=== PATIENT | male | born 1950 | race Caucasian/White ===

== ENCOUNTER 2019-07-03 11:36 | Inpatient (IN) ==
[2019-07-03] MEDS ORDERED: HEPARIN (PORCINE) 1000 UNIT/ML 10 ML (CATH LAB USE ONLY) ONE (11:44)
[2019-07-03] MEDS ORDERED: fentaNYL citrate 100 MCG/2 ML VIAL ONE (11:44)
[2019-07-03] MEDS ORDERED: NiCARDipine HCL INJ 2.5 MG/ML 10 ML AMP ONE (11:44)
[2019-07-03] MEDS ORDERED: NITROGLYCERIN/D5W 100MCG/ML 20ML SYR ONE (11:45)
[2019-07-03] MEDS ORDERED: MIDAZOLAM HCL 1 MG/ML 2ML VIAL ONE (11:45)
--- NOTE | 2019-07-03 11:53 | XRay Report ---
XR chest 1V portable CLINICAL HISTORY: 68 years-old Male presenting with Chest Pain. TECHNIQUE: Portable upright AP view of the chest was obtained. COMPARISON: None. FINDINGS: Atherosclerosis and mild tortuosity of the thoracic aorta. Cardiac silhouette borderline enlarged. Mi ld pulmonary vascular prominence. No focal opacity. No large effusion or pneumothorax. Degenerative c hanges of the thoracic spine. Upper abdomen normal. IMPRESSION: 1. Borderline cardiomegaly and mild volume overload. No aaron pulmonary edema. ACT 112: Negative or not required by law. Electronically signed by: Stu Ornelas M.D. 07/03/2019 11:52 AM
--- NOTE | 2019-07-03 12:01 | Emergency Department Note ---
History of Present Illness General Chief Complaint: Heart Alert Source: patient and EMS Mode of arrival: other ([employer] helicopter) Limitations: no limitations History of Present Illness Provider Complaint: chest pain This is a 68-year-old male who presents to the ED with a chief complaint of chest pain. The patient states that his symptoms started at 10 AM this morning. The pain radiated down both of his arms. He has history of AK in the past and has 2 stents. This was performed in [place]. The patient has some associated shortness of breath. No fevers or recent illness. His symptoms came on at rest. His vital signs here are stable. He was transported by [employer] helicopter to [facility]. The patient took 3 sublingual nitroglycerin himself. He was given a sublingual nitro by EMS. [facility] provided the patient with 50 mcg of IV fentanyl, 4 mg of IV morphine, 4 mg of IV Zofran as w ell as 4000 units of IV heparin and 180 units of Brilinta. The patient was a code heart alert prior to his arrival. Dr. Soto was present upon the patient's presentation in the ED. Home Medications Home Medications Medication Instructions Recorded Confirmed Type aspirin 81 mg PO DAILY 07/03/19 07/03/19 History calcium carbonate-vitamin D3 1 tab PO DAILY 07/03/19 07/03/19 History [Calcium 500 + D] cholecalciferol (vitamin D3) 0 unit PO DAILY 07/03/19 07/03/19 History [Vitamin D3] famotidine 20 mg PO DAILY PRN 07/03/19 07/03/19 History gabapentin 300 mg PO DAILY 07/03/19 07/03/19 History qdefhxldhqi-B1-Ganaqonfs serr 1 tab PO DAILY 07/03/19 07/03/19 History [Osteo Bi-Flex (5-Loxin)] isosorbide mononitrate 60 mg PO QAM 07/03/19 07/03/19 History ketoconazole 1 applic TOPICAL DAILY PRN 07/03/19 07/03/19 History levofloxacin 750 mg PO DAILY 07/03/19 07/03/19 History levothyroxine 50 mcg PO DAILY 07/03/19 07/03/19 History multivitamin 1 cap PO DAILY 07/03/19 07/03/19 History nebivolol [Bystolic] 5 mg PO DAILY 07/03/19 07/03/19 History nitroglycerin [Nitrostat] 0.4 mg SUBLINGUAL UD 07/03/19 07/03/19 History prednisone 7.5 mg PO QDB 07/03/19 07/03/19 History ranitidine HCl 150 mg PO DAILY 07/03/19 07/03/19 History rivaroxaban [Xarelto] 20 mg PO DAILY 07/03/19 07/03/19 History rosuvastatin 20 mg PO HS 07/03/19 07/03/19 History salsalate 500 mg PO BID 07/03/19 07/03/19 History Past Med/Surg History Social History Feels Safe at Home: Yes Smoking Status: Never smoker Review of Systems As above otherwise negative for 10 systems Physical Exam Vital Signs Vital Signs - 24 hr 07/03/19 11:42 07/03/19 11:50 Temperature 36.5 C Temperature Source Oral Pulse Rate 65 Respiratory Rate 22 Blood Pressure 163/92 H Blood Pressure Mean 115 Pulse Oximetry 93 Oxygen Delivery Method Room Air Room Air Sepsis Recent Fever Within 48 Hours No Sepsis Action Taken by Nursing No Action Required CONSTITUTIONAL/VITAL SIGNS: Reviewed / noted above. GENERAL: Non-toxic in appearance. INTEGUMENTARY: Warm, dry, and [place]. HEAD: Normocephalic. EYES: without scleral icterus or trauma. ENT/OROPHARYNX: clear and moist. LYMPHADENOPATHY/NECK: Is supple without lymphadenopathy or meningismus. RESPIRATORY: Lungs clear and equal. CARDIOVASCULAR: Regular rate and rhythm. GI/ABDOMEN: Soft and nontender. No organomegaly or pulsatile mass. No rebound or guarding. Normal bowel sounds. EXTREMITIES: Warm and well perfused. BACK: No CVA tenderness. NEUROLOGICAL: Intact without focal deficits. PSYCHIATRIC: normal affect. MUSCULOSKELETAL: Normally developed with good muscle tone. TRIAGE NURSING DOCUMENTATION REVIEWED. Course Administered Medications Discontinued Medications Dopamine HCl/Dextrose (Dopamine / D5w ([employer] Use Only)) Confirm Administered Dose 400 mg .ROUTE .[facility] ONE Stop: 07/03/19 12:15 Last Admin: 07/03/19 13:38 Dose: Not Given Documented by: [id number] Fentanyl Citrate (Fentanyl Citrate) Confirm Administered Dose 100 mcg .ROUTE .Yorxs ONE Stop: 07/03/19 11:45 Last Admin: 07/03/19 13:37 Dose: 50 mcg Documented by: [id number] Heparin Sodium (Porcine) (Heparin Iv Bolus ([employer] Use Only)) Confirm Administered Dose 10,000 units .ROUTE .STK-MED ONE Stop: 07/03/19 11:45 Last Admin: 07/03/19 13:37 Dose: 5,500 units Documented by: [id number] Heparin Sodium/Sodium Chloride (Heparin/Nss 1000 Unit/500ml Flush Bag) Confirm Administered Dose 3,000 units IV .STK-MED ONE Stop: 07/03/19 11:46 Last Admin: 07/03/19 12:26 Dose: 3,000 units Documented by: [id number] Midazolam HCl (Versed) Confirm Administered Dose 2 mg .ROUTE .STK-MED ONE Stop: 07/03/19 11:46 Last Admin: 07/03/19 13:31 Dose: 2 mg Documented by: [id number] Nicardipine HCl (Cardene) Confirm Administered Dose 25 mg .ROUTE .STK-MED ONE Stop: 07/03/19 11:45 Last Admin: 07/03/19 12:26 Dose: 25 mg Documented by: [id number] Nitroglycerin/Dextrose (Nitroglycerin/D5w 100 Mcg/Ml 20ml Syringe) Confirm Administered Dose 2,000 mcg .ROUTE .STK-MED ONE Stop: 07/03/19 11:46 Last Admin: 07/03/19 12:26 Dose: 2,000 mcg Documented by: [id number] Medical Decision Making Differential Diagnosis The differential that was considered includes acute myocardial infarction, acute coronary syndrome, myocarditis, pericarditis, pericardial effusions /tamponade, esophageal perforation, thoracic aortic dissection, pulmonary embolism, pneumonia, pneumothorax, pancreatitis, shingles, acute cholecystitis, perforated abdominal viscus. Laboratory Data Result diagrams: 07/03/19 11:45 07/03/19 11:45 Labs: Lab Results 07/03/19 07/03/19 07/03/19 Range/Units 11:45 11:45 11:45 WBC 10.69 (4.8-10.8) K/uL RBC 4.76 (4.7-6.1) M/uL Hgb 14.6 (14.0-18.0) g/dL Hct 41.8 L (42-52) % MCV 87.8 (80-100) fL MCH 30.7 (25-34) pg MCHC 34.9 (32-36) g/dL RDW Std Deviation 40.5 (36.4-46.3) fL RDW Coeff of Jimmy 12.6 (11.5-14.5) % Plt Count 590 H (130-400) K/uL MPV 10.0 (7.4-10.4) fL Immature Gran % (Auto) 0.7 % Neut % (Auto) 77.7 % Lymph % (Auto) 10.8 % [place] % (Auto) 9.6 % Eos % (Auto) 0.9 % Baso % (Auto) 0.3 % Immature Gran # (Auto) 0.08 H (0.00-0.02) K/uL Neut # (Auto) 8.30 H (1.4-6.5) K/uL Lymph # (Auto) 1.15 L (1.2-3.4) K/uL [place] # (Auto) 1.03 H (0.11-0.59) K/uL Eos # (Auto) 0.10 (0-0.5) K/uL Baso # (Auto) 0.03 (0-0.2) K/uL PT 14.1 H (9.0-12.0) Seconds INR 1.4 H (0.9-1.1) APTT 105.2 H* (21.0-31.0) Seconds PTT Ratio 3.8 Activ Coag Time Kaolin (94-140) SECONDS Sodium 135 L (136-145) mmol/L Potassium 3.8 (3.5-5.1) mmol/L Chloride 103 (98-107) mmol/L Carbon Dioxide 22 (21-32) mmol/L Anion Gap 10.0 (3-11) BUN 14 (7-18) mg/dl Creatinine 0.99 (0.6-1.4) mg/dl Est Cr Clr Drug Dosing 74.8 ml/min Est GFR ( Amer) 91.0 Est GFR (Non-Af Amer) 78.5 BUN/Creatinine Ratio 14.6 (10-20) Glucose 135 H (70-99) mg/dl Calcium 9.6 (8.5-10.1) mg/dl Total Bilirubin 0.9 (0.2-1) mg/dl AST 47 H (15-37) U/L ALT 95 H (12-78) U/L Alkaline Phosphatase 57 (45-117) U/L Total Creatine Kinase 25 L (39-308) U/L Troponin I 0.063 H* (0-0.045) ng/ml Total Protein 6.8 (6.4-8.2) gm/dl Albumin 3.2 L (3.4-5.0) gm/dl Globulin 3.6 (2.5-4.0) gm/dl Albumin/Globulin Ratio 0.9 (0.9-2) 07/03/19 Range/Units 12:04 WBC (4.8-10.8) K/uL RBC (4.7-6.1) M/uL Hgb (14.0-18.0) g/dL Hct (42-52) % MCV (80-100) fL MCH (25-34) pg MCHC (32-36) g/dL RDW Std Deviation (36.4-46.3) fL RDW Coeff of Jimmy (11.5-14.5) % Plt Count (130-400) K/uL MPV (7.4-10.4) fL Immature Gran % (Auto) % Neut % (Auto) % Lymph % (Auto) % [place] % (Auto) % Eos % (Auto) % Baso % (Auto) % Immature Gran # (Auto) (0.00-0.02) K/uL Neut # (Auto) (1.4-6.5) K/uL Lymph # (Auto) (1.2-3.4) K/uL [place] # (Auto) (0.11-0.59) K/uL Eos # (Auto) (0-0.5) K/uL Baso # (Auto) (0-0.2) K/uL PT (9.0-12.0) Seconds INR (0.9-1.1) APTT (21.0-31.0) Seconds PTT Ratio Activ Coag Time Kaolin 175 H (94-140) SECONDS Sodium (136-145) mmol/L Potassium (3.5-5.1) mmol/L Chloride (98-107) mmol/L Carbon Dioxide (21-32) mmol/L Anion Gap (3-11) BUN (7-18) mg/dl Creatinine (0.6-1.4) mg/dl Est Cr Clr Drug Dosing ml/min Est GFR ( Amer) Est GFR (Non-Af Amer) BUN/Creatinine Ratio (10-20) Glucose (70-99) mg/dl Calcium (8.5-10.1) mg/dl Total Bilirubin (0.2-1) mg/dl AST (15-37) U/L ALT (12-78) U/L Alkaline Phosphatase (45-117) U/L Total Creatine Kinase (39-308) U/L Troponin I (0-0.045) ng/ml Total Protein (6.4-8.2) gm/dl Albumin (3.4-5.0) gm/dl Globulin (2.5-4.0) gm/dl Albumin/Globulin Ratio (0.9-2) Imaging Data Chest x-ray: Attestation: I personally reviewed and interpreted this imaging study as follows: (No acute disease. No pneumothorax. No pneumonia.) My impression: No acute disease. No pneumonia or pneumothorax. Radiologist's impression: XR chest 1V portable CLINICAL HISTORY: 68 years-old Male presenting with Chest Pain. TECHNIQUE: Portable upright AP view of the chest was obtained. COMPARISON: None. FINDINGS: Atherosclerosis and mild tortuosity of the thoracic aorta. Cardiac silhouette borderline enlarged. Mild pulmonary vascular prominence. No focal opacity. No large effusion or pneumothorax. Degenerative changes of the thoracic spine. Upper abdomen normal. IMPRESSION: 1. Borderline cardiomegaly and mild volume overload. No aaron pulmonary edema. ECG Data Attestation: I personally reviewed and interpreted this ECG as follows: Indication: chest pain Rate (beats per minute): 63 Rhythm: normal sinus Findings: + Q waves (Inferior) and + ST elevation (Inferior and posterior); no PVC Comparison ECG Date: no prior available Blood Pressure Blood Pressure Findings: Elevated blood pressure Blood Pressure Disposition: further management by hospitalist SUKHI Gonzales This is a 68-year-old male who presents to the ED with a chief complaint of chest pain. The patient states that his symptoms started at 10 AM this morning. The pain radiated down both of his arms. He has history of AK in the past and has 2 stents. This was performed in [place]. The patient has some associated s hortness of breath. No fevers or recent illness. His symptoms came on at rest. His vital signs here are stable. He was transported by [employer] helicopter to [facility]. The patient took 3 sublingual nitroglycerin himself. He was given a sublingual nitro by EMS. [facility] provided the patient with 50 mcg of IV fentanyl, 4 mg of IV morphine, 4 mg of IV Zofran as well as 4000 units of IV heparin and 180 units of Brilinta. The patient was a code heart alert prior to his arrival. Dr. Soto was present upon the patient's presentation in the ED. the patient's twelve-lead here shows an acute inferior posterior wall AK. The patient received the medication. Chest x-ray was negative for acute disease. The patient was taken to the [facility] for further intervention. The patient CBC and chemistry panel was unremarkable. Troponin was elevated. Chest x-ray was negative for acute disease. Impression & Plan ST elevation (STEMI) myocardial infarction Critical Care Time Critical Care Time: Yes Total Critical Care Time: 30 I have personally spent 30 minutes of critical care time in the direct management of this patient. This includes bedside care, interpretation of diagnostic studies, and testing, discussion with consultants, patient, and family members, and other required patient management activities. This 30 minutes is in excess of all separately billable procedures. Discharge Plan Visit Data *Final* Discharge Date/Time: 07/03/19 12:06 Chief Complaint: Heart Alert ED Provider: Tristian Rosenberg Discharge Problem: ST elevation (STEMI) myocardial infarction Patient Disposition: Still a Patient Discharge Instructions Interventions: ED Discharge Assessment Last Done: 07/03/19 11:59 Discharge Problem: ST elevation (STEMI) myocardial infarction Qualifiers: Involved coronary artery: right coronary artery Qualified Code(s): I21.11 - ST elevation (STEMI) myocardial infarction involving right coronary artery
[2019-07-03 12:02] LABS: Basophils # (auto) 0.03 K/uL (0-0.2); Basophils % (auto) 0.3 %; Eosinophils % (auto) 0.9 %; Hematocrit (blood only) 41.8 % (42-52); Hemoglobin 14.6 g/dL (14.0-18.0); Immature Granulocytes # (auto) 0.08 K/uL (0.00-0.02); Immature Granulocytes % (auto) 0.7 %; Lymphocytes # (auto) 1.15 K/uL (1.2-3.4); Lymphocytes % (auto) 10.8 %; Mean Corpuscular Hemoglobin 30.7 pg (25-34); Mean Corpuscular Hgb Conc 34.9 g/dL (32-36); Mean Corpuscular Volume 87.8 fL (80-100); Monocytes # (auto) 1.03 K/uL (0.11-0.59); Monocytes % (auto) 9.6 %; Neutrophils % (auto) 77.7 %; Platelet Count 590 K/uL (130-400); RDW Coefficient of Variation 12.6 % (11.5-14.5); RDW Standard Deviation 40.5 fL (36.4-46.3); Red Blood Count 4.76 M/uL (4.7-6.1); White Blood Count 10.69 K/uL (4.8-10.8)
[2019-07-03] MEDS ORDERED: DOPamine 400MG / 250ML D5W (CATH LAB USE ONLY) ONE (12:14)
[2019-07-03 12:27] LABS: Albumin Globulin Ratio 0.9 (0.9-2); Albumin Level 3.2 gm/dl (3.4-5.0); BUN Creatinine Ratio 14.6 (10-20); Bilirubin,Total 0.9 mg/dl (0.2-1); Calcium 9.6 mg/dl (8.5-10.1); Creatinine Clr Calc Pharmacy 74.8 ml/min; Est GFR (Non-African American) 78.5; Globulin 3.6 gm/dl (2.5-4.0); Potassium 3.8 mmol/L (3.5-5.1); Total Protein 6.8 gm/dl (6.4-8.2)
[2019-07-03 12:32] LABS: INR 1.4 (0.9-1.1); Partial Thromboplastin Ratio 3.8; Prothrombin Time 14.1 Seconds (9.0-12.0)
[2019-07-03 12:35] LABS: Troponin I 0.063 ng/ml (0-0.045)
[2019-07-03 12:46] LABS: Partial Thromboplastin Time 105.2 Seconds (21.0-31.0)
--- NOTE | 2019-07-03 14:42 | Post Anesthesia Assessment ---
Date of Service July 03, 2019 Post Sedation Assessment Vital Signs Temp Pulse Resp BP Pulse Ox 07/03/19 11:50 36.5 C 65 22 163/92 H 93 Recovery Score Activity: Moves 4 extremities Respiration: Deep Breath/Cough Circulation: +/-20% PreAnes Value Consciousness: Fully Awake Oxygen Saturation: > 92% On Room Air Discharge Sedation Level of Care: Phase I Post Sedation Plan On clinical assessment, the patient appears to have tolerated the sedation without complications. Patient is recovering as anticipated. Patient will continue to be monitored by nursing and may be discharged when sedation discharge criteria are met per below protocol. Upon Completions of procedure up to 15 minutes continue every 5 minute vital signs and the P.A.R. score; then discharge to a Phase I or Fast Track to Phase II per the following guidelines: * Discharge Patient to appropriate Phase II area if PAR is 8 or greater or return to pre- procedure baseline. The post - procedure orders will be as directed. * If PAR score is less than 8 or not return to pre-procedure baseline then patient will follow Phase I monitoring till PAR is reached for Phase II. The Phase I may be done in procedure room or may call to secure a Phase I area. * If naloxone or flumazenil are used for reversal, hold in Phase I for continued monitoring from when last reversal dose was given for a minimum of 60 minutes or longer pending the nurse and/or physician discretion of patient condition before discharge to Phase II. Please call the Sedation Physician to re-evaluate and complete post-note for discharge to Phase II area. Do NOT discharge from procedure sedation or Phase 1 until post- sedation evaluation note is complete by procedure /sedation MD Sedation Discharge Instructions to be given to the patient at discharge to home.
--- NOTE | 2019-07-03 14:42 | Pre Anesthesia Assessment ---
Date of Service July 03, 2019 Pre Sedation Assessment Vital Signs Temp Pulse Resp BP Pulse Ox 07/03/19 11:50 36.5 C 65 22 163/92 H 93 Cardiovascular RRR, no murmur, no edema Respiratory normal respiratory effort, lungs clear to auscultation Pre-Sedation Airway Assessment Smoking Status: Never smoker Hx Sleep Apnea: No Hx Difficult Intubation: No Short, Thick Neck: No Mallampati Class: II ASA: ASA3 Procedure Planning Contraindications for Sedation: none Current Medications Reviewed: No Notes The planned sedation has been discussed with the patient. Informed Consent was obtained. I have identified the patient, determined the appropriateness of sedation and have assessed the patient immediately prior to the procedure. All medicine(s) and interventions are by my order.
--- NOTE | 2019-07-03 15:06 | Cardiac Catheterization ---
Cardiac Cath Procedure Full Procedure Date July 03, 2019 Pre-Procedure Diagnosis Pre-Procedure Diagnosis: STEMI AUC Score AUC Score: 09 Post-Procedure Diagnosis Post-Procedure Diagnosis: Severe CAD Procedure(s) Performed Procedure(s) Performed: Coronary Angiography and PTCA Dive Supervisor Jm Soto MD Estimated Blood Loss Estimated Blood Loss: <20 ml Medication(s) Medication(s): Aspirin, Fentanyl, Heparin, Lidocaine 1%, Nicardipine, Nitroglycerin and Versed Medication(s): Brilinta Summary of Findings LMT: large. Mild <30% LAD: large, transapical. Prox-mild, mid up to 40%, early distal before stent 40%, late after D3 70% D1 small, D2 medium with ostial 70%, D3 small LCx: large, nondominant Prox and mid mild disease. Distal medium tapers to termination. Mild disease OM1+2 small with mild diseaseOM3 large and branching without disease. RCA: large caliber and dominant. Diffuse disease and ectasia. Proximal 20-30%. At RVM long eccentric calcified 30-40%. RVM prox 99%. Then ectasia/aneurysm before mid stent. Early distal stent with diffuse mild ISRS. Late distal stent 100% with thrombus and ISRS. PDA and PLB are large and fill late with DOMENICA 0.5-1 flow. PTCA of distal stent: reduced thrombus, improved flow (DOMENICA II-2.5), Residual stenosis of 20%. * unable to deliver stents distally. No dissection/perforation. Hemodynamics Rest Ao:: 134/69 mm Hg, mean 97 mm Hg Final Ao: 144/72 mm Hg, mean 101 mm Hg LV: N/A Recommendations Recommendations: Medical Therapy and/or Counseling, PCI without planned CABG and Management Recommendatons (heparin gtt for 48 hrs. If recurrence then Repeat cath from GROIN.) Radiation Exposure (mGy) 3861 Contrast (mls) 200 ml Procedural Complication(s) None Disposition ICU I attest to the content of the Intraoperative Record and any orders documented therein. Any exceptions are noted below. 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 Cardiac Status Clinical evaluation leading to the procedure CAD Presenation: STEMI Anginal Classification: CCS IV Heart Failure: No Cardiogenic Shock within 24 Hours: No Cardiac Arrest within 24 Hours: No Imaging Studies Past 6 Months: No Stress Studies Past 6 Months: No STEMI OR Non-STEMI Symptom Onset Date: 07/03/19 Symptom Onset Time: 10:01 Thrombolytics: No Coronary Anatomy Dominant: Right Left Main (% Stenosis): Normal LAD (% Stenosis): Distal (40%, mild ISRS, focal 70%) OM1 (% Stenosis): Normal (scattered mild plaques) L PDA (% Stenosis): Proximal (mild), Mid (30-40%, ectasia) and Distal (early stent ok, distal stent 100% with thrombus and ISRS. TIMI1) R PDA (% Stenosis): Ostial (thrombus 99%) Diagnostic Physicians Name: Jm Soto MD Status: Emergency Closure Device Percutaneous Entry Location: Radial Closure Device: Radial Band Recommendations: Medical Therapy and/or Counseling, PCI without planned CABG and Management Recommendatons (heparin gtt for 48 hrs. If recurrence then Repeat cath from GROIN.) PCI Indication: PCI for STEMI - Stable First Noted: First EKG Reason For Delay in PCI:: Difficulty crossing culprit lesion Lesion Segment Name: distal RCA Culprit Artery: Yes Stenosis Prior to Rx (%): 100% Chronic Total Occlusion: No Pre-Procedure DOMENICA Flow: 1 Previously Treated Lesion: Yes Lesion Complexity: High/C Lesion Length (mm): 23 mm Thrombus Present: Yes Bifurcation Lesion: Yes Guidewire Across Lesion: Yes Intraprocedure Events Significant Disection: No Perforation: No
[2019-07-03] MEDS ORDERED: Heparin IV Standard *NO* Bolus IV SCH (15:15)
--- NOTE | 2019-07-03 15:23 | Critical Care Consultation ---
Date of Consultation July 03, 2019 Assessment & Plan (1) ST elevation (STEMI) myocardial infarction: Reason Critically Ill: 68 year old male presenting with an acute inferior posterior wall OR that underwent cardiac catheterization with ballooning of the stenosis but inability to stent. NEURO: CAM ICU: Negative CARDIAC: STEMI of Inferior Posterior Wall 2/2 stenosis of distal RCA -ST elevations noted on 12 lead EKG in ED -Patient received nitro and ASA prior to life flight. -Was given 50mg fentanyl, 4mg morphine, 4mg zofran, 4000 units heparin, and 180 units Brilinta on life flight -Was taken to the dental laboratory technician apprentice where he had a noted 100% stenosis of his distal RCA Stent -Patient was ballooned and remaining stenosis was 20%, but stent was unable to be placed. -Plan to start heparin drip x48 hours after TR band is removed -Continue ASA, Plavix, Imdur, Rosuvastatin -Continue Bystolic, hold for HR <60 -If patient should start having symptoms again, would recommend consulting Dr. Tse as he will be covering for a femoral approach at the lesions vs transfer for surgery. Hx Paroxysmal Afib -Holding home xarelto at this time. RESPIRATORY: -No concerns at the time, continue to monitor GI: Continue Pepcid for prophylaxis RENAL/LYTES: No concerns at this, time will continue to monitor lytes : No concerns ENDO: Hypothyroidism -Continue home synthroid 50mcg HEME: Rheumatoid Arthritis -Continue home gabapentin, prednisone -Holding home Salsalate ID: No concerns at this time LINES/IV ACCESS: R antecubital peripheral CODE STATUS: Full DVT PROPHYLAXIS: Heparin Drip Thank you for allowing us to participate in the care of this patient. Please refer to my attending physician's documentation for any further recommendations. Supervising Physician Co-Signing Physician Notes Dr. Cam was the resident-physician during care of patient. I separately evaluated patient for hussein portions of the history and the exam. I was present during the critical portion of medical decision making, and I discussed the case with the resident. I generally agree with the findings and plan except for any additions/exceptions noted. Patient with a history of coronary artery disease. He had chest pain this morning around 10 AM that woke him up from sleep. Underwent a heart cath today by Dr. Soto. There was ectasia in the RCA and latex spooler was able to balloon open the vessel but unable to place a stent. Further discussion with the latex spooler who recommends 48 hours of heparin drip. If any recurrent symptoms, will discuss with interventional cardiology again about possible re- intervention versus transfer to a tertiary facility. History of Present Illness Reason for Consultation: STEMI S/P Heart Cath Attending Physician: Jm Soto MD History of Present Illness Patient is a 68 year old male that was transferred to the ICU for observation after undergoing hearth cath with balloon of the stenotic lesion. Patient notes that his symptoms started this morning around 10AM and described it as a "chest congestion" and led to pain which radiated down both of his arms. He notes that he had a history of an OR 10 years ago which required 2 stents in [place], and that he had another heart cath 2-3 years ago that was "about the same" as after the stent placement. He was transported via [employer] to [facility] as a heart alert. Prior to that he had taken 3 nitroglycerin and ASA at home. Upon arrival, his 12 lead EKG showed an acute inferior posterior wall OR and he was rushed to the chemical laboratory scientist for further intervention. It was noted at the late distal stent of his RCA there was a 100% stenosis with thrombus. The thrombus was reduced and the residual stenosis was 20%, however, a stent was unable to be delivered distally. Patient had notable relief of chest pain and was transferred to ICU for monitoring. Of note, patient states that he was recently hospitalized and treated for the Flu and pneumonia 1 week ago. He states that he has since improved from that and has completed his course of levaquin. He denies any fever or chills, cough since. Allergies Allergy/AdvReac Type Severity Reaction Status Date / Time Penicillins Allergy Rash Verified 07/03/19 15:36 Sulfa (Sulfonamide Allergy Chest Pain Verified 07/03/19 15:36 Antibiotics) Home Medications Home Medications Medication Instructions Recorded Confirmed Type aspirin 81 mg PO DAILY 07/03/19 07/03/19 History calcium carbonate-vitamin D3 1 tab PO DAILY 07/03/19 07/03/19 History [Calcium 500 + D] cholecalciferol (vitamin D3) 0 unit PO DAILY 07/03/19 07/03/19 History [Vitamin D3] famotidine 20 mg PO DAILY PRN 07/03/19 07/03/19 History gabapentin 300 mg PO DAILY 07/03/19 07/03/19 History gvagzdzgfrh-W0-Inmyihrmt serr 1 tab PO DAILY 07/03/19 07/03/19 History [Osteo Bi-Flex (5-Loxin)] isosorbide mononitrate 60 mg PO QAM 07/03/19 07/03/19 History ketoconazole 1 applic TOPICAL DAILY PRN 07/03/19 07/03/19 History levofloxacin 750 mg PO DAILY 07/03/19 07/03/19 History levothyroxine 50 mcg PO DAILY 07/03/19 07/03/19 History multivitamin 1 cap PO DAILY 07/03/19 07/03/19 History nebivolol [Bystolic] 5 mg PO DAILY 07/03/19 07/03/19 History nitroglycerin [Nitrostat] 0.4 mg SUBLINGUAL UD 07/03/19 07/03/19 History prednisone 7.5 mg PO QDB 07/03/19 07/03/19 History ranitidine HCl 150 mg PO DAILY 07/03/19 07/03/19 History rivaroxaban [Xarelto] 20 mg PO DAILY 07/03/19 07/03/19 History rosuvastatin 20 mg PO HS 07/03/19 07/03/19 History salsalate 500 mg PO BID 07/03/19 07/03/19 History Patient History Medical History (Updated 07/03/19 @ 15:45 by Germán Cam DO) Myocardial infarct Social History Preferred Language: Citizen Of [place] Communication Ability: 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 Beliefs That Will Affect Care: None Current Living Situation: Spouse Other Information That Helps Us Care for You: No Feels Safe at Home: Yes Safety Concerns: Feels Safe At This Time Smoking Status: Never smoker Do You Dip or Chew Tobacco: No ; Second Hand Exposure: No ; Tobacco Cessation Education Requested by Patient: No Hx Alcohol Use: No Hx Substance Use: No Review of Systems Constitutional: no fever and no chills Eyes: no blind spots and no worsening vision Ear, Nose, Mouth, Throat: no dizziness Respiratory: no cough, no dyspnea and no pain on inspiration Cardiovascular: + chest pain (notes slight chest discomfort ); no radiating jaw, neck or arm pain, no dyspnea, no dyspnea on exertion and no palpitations Gastrointestinal: no abdominal pain, no nausea, no vomiting, no constipation and no diarrhea/loose stools Genitourinary: no dysuria Physical Exam Constitutional: WD/WN, vitals as above Respiratory: normal respiratory effort, lungs clear to auscultation Cardiovascular: RRR, no murmur, no edema Gastrointestinal (Abdomen): normal bowel sounds, soft, nontender, no hepatosplenomegaly Skin: R wrist with TR band in place, CDI. Results & Data Vital Signs (Past 12 Hours) Vital Signs Temp Pulse Resp BP Pulse Ox 07/03/19 11:50 36.5 C 65 22 163/92 H 93 Resident Activity Tracking Resident Involvement: Resident Care Provided Care Provided: Adult Hospital Medicine (1) ST elevation (STEMI) myocardial infarction Involved coronary artery: right coronary artery Qualified Code(s): I21.11 - ST elevation (STEMI) myocardial infarction involving right coronary artery
[2019-07-03] MEDS ORDERED: LEVOTHYROXINE SODIUM 50 MCG TABLET PO SCH (16:30)
--- NOTE | 2019-07-03 16:47 | Electrocardiogram Report ---
Test Reason : Blood Pressure : / mmHG Vent. Rate : 063 BPM Atrial Rate : 063 BPM P-R Int : 166 ms QRS Dur : 108 ms QT Int : 416 ms P-R-T Axes : 037 051 087 degrees QTc Int : 425 ms Normal sinus rhythm Minimal voltage criteria for LVH, may be normal variant Inferior-posterior infarct , possibly acute Lateral injury pattern ACUTE [place] / STEMI Abnormal ECG No previous ECGs available Confirmed by Saturnino Bond ([id number]) on 07/03/2019 4:47:15 PM Referred By: REFERRED SELF Confirmed By:Saturnino Bond
--- NOTE | 2019-07-03 16:52 | Billing Data ---
Date of Service July 03, 2019 Coding Level of Care Code 67348 Initial Inpt Care Lvl 3
--- NOTE | 2019-07-03 17:30 | XCELERA ---
[id number] \\[email or web address]\[email or web address]\[id number]
[2019-07-03] MEDS: HEPARIN SODIUM/DEXTROSE 25,000 UNITS/500 ML BAG IV SCH (17:33)
[2019-07-03] MEDS: FAMOTIDINE 20 MG TAB PO SCH (17:34)
[2019-07-03] MEDS: GABAPENTIN 300 MG CAP PO SCH (17:35)
[2019-07-03] MEDS ORDERED: CLOPIDOGREL BISULFATE 300 MG TAB PO ONE (18:00)
[2019-07-03] MEDS: ROSUVASTATIN CALCIUM 20 MG TAB PO SCH (21:07)
[2019-07-03] MEDS ORDERED: ICU PROTOCOL FOR HYPERGLYCEMIA PRN (21:25)
[2019-07-04 00:07] LABS: Partial Thromboplastin Ratio 2.5
[2019-07-04 00:08] LABS: Partial Thromboplastin Time 70.7 Seconds (21.0-31.0)
[2019-07-04 01:55] LABS: Basophils # (auto) 0.03 K/uL (0-0.2); Basophils % (auto) 0.4 %; Hematocrit (blood only) 40.4 % (42-52); Hemoglobin 14.1 g/dL (14.0-18.0); Immature Granulocytes # (auto) 0.05 K/uL (0.00-0.02); Immature Granulocytes % (auto) 0.7 %; Lymphocytes # (auto) 1.03 K/uL (1.2-3.4); Lymphocytes % (auto) 15.4 %; Mean Corpuscular Hemoglobin 30.9 pg (25-34); Mean Corpuscular Hgb Conc 34.9 g/dL (32-36); Mean Corpuscular Volume 88.4 fL (80-100); Mean Platelet Volume 9.3 fL (7.4-10.4); Monocytes # (auto) 0.93 K/uL (0.11-0.59); Monocytes % (auto) 13.9 %; Neutrophils # (auto) 4.47 K/uL (1.4-6.5); Neutrophils % (auto) 66.6 %; Platelet Count 414 K/uL (130-400); RDW Coefficient of Variation 12.7 % (11.5-14.5); RDW Standard Deviation 40.6 fL (36.4-46.3); Red Blood Count 4.57 M/uL (4.7-6.1); White Blood Count 6.71 K/uL (4.8-10.8)
[2019-07-04 02:18] LABS: BUN Creatinine Ratio 11.6 (10-20); Calcium 8.6 mg/dl (8.5-10.1); Creatinine Clr Calc Pharmacy 87.1 ml/min; Est GFR (African American) 104.5; Est GFR (Non-African American) 90.2; Magnesium 1.9 mg/dl (1.8-2.4); Potassium 3.7 mmol/L (3.5-5.1)
[2019-07-04] MEDS ORDERED: MAGNESIUM SULFATE / D5W 1 GM/100 ML BAG IV ONE (02:29)
[2019-07-04 02:44] LABS: Phosphorus 3.7 mg/dl (2.5-4.9); Troponin I 69.6 ng/ml (0-0.045)
[2019-07-04] MEDS: POTASSIUM CHLORIDE / WTR 10 MEQ/100 ML PLCT IV SCH ×2 (03:26→04:23)
[2019-07-04 07:20] LABS: Partial Thromboplastin Ratio 2.6
[2019-07-04 07:35] LABS: Partial Thromboplastin Time 72.6 Seconds (21.0-31.0)
[2019-07-04] MEDS ORDERED: NEBIVOLOL HCL 5 MG TAB PO SCH (09:00)
[2019-07-04] MEDS ORDERED: ISOSORBIDE MONO EXTENDED REL 60 MG TABCR PO SCH (09:00)
[2019-07-04] MEDS: predniSONE 2.5 MG TAB PO SCH (09:28)
[2019-07-04] MEDS: CLOPIDOGREL BISULFATE 75 MG TAB PO SCH (09:29)
[2019-07-04] MEDS: ASPIRIN 81 MG ECTAB PO SCH (09:29)
[2019-07-04] MEDS: FAMOTIDINE 20 MG TAB PO SCH (09:29)
[2019-07-04] MEDS: GABAPENTIN 300 MG CAP PO SCH (09:29)
--- NOTE | 2019-07-04 09:42 | Critical Care Progress Note ---
Date of Service July 04, 2019 Assessment & Plan (1) ST elevation (STEMI) myocardial infarction: Continue post STEMI care. High-grade lesion and unable to place stent per cardiology. Heparin drip x48 hours. Continue beta-mitchell. He is on nebivolol. Ideally he should be on a cardioselective beta-mitchell. Will defer to cardiology. EF is 40 to 45%. Base and mid inferior wall are akinetic in the mid section of the posterior wall is akinetic. I have added lisinopril 2.5 mg as well. Continue isosorbide mononitrate. Continue statin. Continue aspirin and Plavix. Continue prednisone for his history of rheumatoid arthritis. Monitor for any further signs of ventricular tachycardia. Stable transfer to floor with telemetry. (2) CAD (coronary artery disease): (3) Hypertension: (4) Ventricular tachycardia: Subjective Patient is lying in bed today watching TV. He denies any complaint. No chest pain or fevers. No nausea. Heparin drip is running. He had some short runs of ventricular tachycardia overnight. He is receiving potassium and magnesium this morning. Review of Systems Review of Systems: All systems reviewed & are unremarkable except as noted in HPI & below Physical Exam Constitutional: WD/WN, vitals as above Eyes: PERRL, conjunctivae normal, anicteric sclerae ENMT: external ear and nose normal, oropharynx normal Neck: trachea midline, no thyromegaly Respiratory: normal respiratory effort, lungs clear to auscultation Cardiovascular: RRR, no murmur, no edema Gastrointestinal (Abdomen): normal bowel sounds, soft, nontender, no hepatosplenomegaly Musculoskeletal: no cyanosis or clubbing, extremities motor strength 5/5 Skin: no rashes, warm and dry Neurologic: PERRL, EOMI, accommodation nl, no face palsy, no dysarthria Psychiatric: A+Ox3, euthymic affect Results & Data ([facility]) Vital Signs (Past 12 Hours) Vital Signs Temp Pulse Resp BP Pulse Ox 07/04/19 06:30 60 18 95 07/04/19 06:20 60 14 96 07/04/19 06:10 60 19 96 07/04/19 06:09 61 18 117/67 96 07/04/19 06:00 69 19 77 L 07/04/19 05:50 60 15 95 07/04/19 05:40 62 17 96 07/04/19 05:30 61 15 96 07/04/19 05:27 62 11 L 123/72 97 07/04/19 05:20 62 14 97 07/04/19 05:12 63 18 127/70 97 07/04/19 05:10 63 13 97 07/04/19 05:00 63 16 96 07/04/19 04:57 64 18 114/70 96 07/04/19 04:50 62 26 H 96 07/04/19 04:42 63 19 130/75 97 07/04/19 04:40 61 18 97 07/04/19 04:30 60 17 96 07/04/19 04:27 60 16 116/70 96 07/04/19 04:20 61 18 96 07/04/19 04:12 60 18 109/67 96 07/04/19 04:10 60 18 95 07/04/19 04:00 97.3 F L 59 L 11 L 96 07/04/19 03:57 59 L 19 112/68 96 07/04/19 03:50 59 L 18 95 07/04/19 03:43 62 19 96 07/04/19 03:42 62 17 119/69 96 07/04/19 03:30 62 21 96 07/04/19 03:27 61 17 127/80 96 07/04/19 03:12 59 L 17 126/72 98 07/04/19 03:00 58 L 17 95 07/04/19 02:57 57 L 19 134/74 96 07/04/19 02:42 62 16 105/65 96 07/04/19 02:30 62 18 96 07/04/19 02:27 66 18 120/60 97 07/04/19 02:12 58 L 19 112/68 96 07/04/19 02:00 61 19 97 07/04/19 01:57 65 16 118/72 97 07/04/19 01:42 59 L 17 107/68 96 07/04/19 01:30 59 L 18 96 07/04/19 01:27 60 18 129/75 97 07/04/19 01:12 60 19 116/71 96 07/04/19 01:00 61 17 96 07/04/19 00:57 61 17 109/67 95 07/04/19 00:42 58 L 16 109/69 96 07/04/19 00:30 57 L 17 97 07/04/19 00:27 57 L 14 142/81 H 98 07/04/19 00:12 57 L 18 122/72 97 07/04/19 00:00 97.9 F 56 L 18 98 07/03/19 23:57 57 L 17 120/70 97 07/03/19 23:42 57 L 19 118/72 98 07/03/19 23:30 56 L 17 97 07/03/19 23:27 55 L 17 117/73 97 07/03/19 23:12 56 L 18 122/73 97 07/03/19 23:00 58 L 18 96 07/03/19 22:57 57 L 17 107/65 96 07/03/19 22:42 57 L 18 107/69 96 07/03/19 22:30 55 L 20 99 07/03/19 22:27 55 L 13 139/84 99 07/03/19 22:11 58 L 16 110/72 97 07/03/19 22:00 59 L 17 97 07/03/19 21:56 58 L 19 118/68 97 07/03/19 21:41 58 L 17 113/71 97 I personally reviewed his labs, chest imaging and notes. I also reviewed his echo Coding Level of Care Code 09104 Subseq Hosp Care Lvl [address] elevation (STEMI) myocardial infarction I21.11 Involved coronary artery: right coronary artery CAD (coronary artery disease) I25.10 Hypertension I10 Ventricular tachycardia I47.2 (1) ST elevation (STEMI) myocardial infarction Involved coronary artery: right coronary artery Qualified Code(s): I21.11 - ST elevation (STEMI) myocardial infarction involving right coronary artery
[2019-07-04] MEDS: HEPARIN SODIUM/DEXTROSE 25,000 UNITS/500 ML BAG IV SCH (11:27)
--- NOTE | 2019-07-04 11:44 | Electrocardiogram Report ---
Test Reason : Blood Pressure : / mmHG Vent. Rate : 064 BPM Atrial Rate : 064 BPM P-R Int : 166 ms QRS Dur : 098 ms QT Int : 414 ms P-R-T Axes : 040 -33 046 degrees QTc Int : 427 ms Normal sinus rhythm Left axis deviation Acute Inferior infarct (cited on or before 03-JUL-2019) ACUTE [place] / STEMI Consider right ventricular involvement in acute inferior infarct Abnormal ECG When compared with ECG of 03-JUL-2019 11:40, Serial changes of evolving Inferior infarct Present Confirmed by Gordo Thompson ([id number]) on 07/04/2019 11:43:55 AM Referred By: REFERRED SELF Confirmed By:Gordo Thompson
--- NOTE | 2019-07-04 13:33 | Cardiology Progress Note ---
Date of Service July 04, 2019 Assessment & Plan (1) ST elevation (STEMI) myocardial infarction: -- Post angioplasty to mid RCA, distal RCA very-late stent thrombosis. -- Residual distal LAD disease 2. Ischemic cardiomyopathy -- EF 40-45%, inferior akinesis. 3. Paroxysmal atrial fibrillation, post prior AF ablation 4. Recent ICU stay in setting of flu/PNA 5. Rheumatoid arthritis. 6. NSVT -- Patient chest pain free and troponin peaked. -- Hemodynamically and electrically stable -- Mild pulmonary congestion on exam. -- Post procedure labs stable -- No access site complications. - Reviewed patient's angiography and discussed options for management of his RCA disease long-term. Significant residual disease in RCA and feel reasonable to attempt re-intervention from femoral artery approach. Tentatively plan on procedure saturday morning. - Continue heparin infusion in interim. - fpc plan on triple therapy with clopidogrel, xarelto and aspirin for 1 week then drop aspirin - transition nebivolol to metoprolol 12.5 mg BID and titrate up as able - continue to titrate up lisinopril. - can discontinue imdur - continue high-intensity statin - start PPI while on triple therapy Up in chair today, can transition to telemetry later today if remains stable. Admission and Anticipated Discharge Date Admission Date: July 03, 2019 Subjective Patient has been chest pain free since angioplasty yesterday. Minimal NSVT on telemetry. Troponin has peaked. Review of Systems Review of Systems: All systems reviewed & are unremarkable except as noted in HPI & below Physical Exam Physical Exam: General: Comfortable, no acute distress Eyes: Sclerae anicteric, extraocular movements intact HENT: Oropharynx clear mucous membranes moist Neck: No JVD. Lungs: Few crackles at bases bilaterally Cardiac: Regular rate and rhythm, no murmurs Abdomen: Soft, nontender Neuro: Nonfocal Psych: Alert orient x3, normal affect and mood Extremities/Vascular: -- 2+ radial bilaterally -- RT radial pulse intact, no hematoma. intact distal sensation. -- No edema Results & Data ([facility]) Vital Signs (Past 12 Hours) Vital Signs Temp Pulse Resp BP Pulse Ox 07/04/19 08:00 60 07/04/19 06:30 60 18 95 07/04/19 06:20 60 14 96 07/04/19 06:10 60 19 96 03/14/20 06:09 61 18 117/67 96 07/04/19 06:00 69 19 77 L 07/04/19 05:50 60 15 95 07/04/19 05:40 62 17 96 07/04/19 05:30 61 15 96 07/04/19 05:27 62 11 L 123/72 97 07/04/19 05:20 62 14 97 07/04/19 05:12 63 18 127/70 97 07/04/19 05:10 63 13 97 07/04/19 05:00 63 16 96 07/04/19 04:57 64 18 114/70 96 07/04/19 04:50 62 26 H 96 07/04/19 04:42 63 19 130/75 97 07/04/19 04:40 61 18 97 07/04/19 04:30 60 17 96 07/04/19 04:27 60 16 116/70 96 07/04/19 04:20 61 18 96 07/04/19 04:12 60 18 109/67 96 07/04/19 04:10 60 18 95 07/04/19 04:00 97.3 F L 59 L 11 L 96 07/04/19 03:57 59 L 19 112/68 96 07/04/19 03:50 59 L 18 95 07/04/19 03:43 62 19 96 07/04/19 03:42 62 17 119/69 96 07/04/19 03:30 62 21 96 07/04/19 03:27 61 17 127/80 96 07/04/19 03:12 59 L 17 126/72 98 07/04/19 03:00 58 L 17 95 07/04/19 02:57 57 L 19 134/74 96 07/04/19 02:42 62 16 105/65 96 07/04/19 02:30 62 18 96 07/04/19 02:27 66 18 120/60 97 07/04/19 02:12 58 L 19 112/68 96 07/04/19 02:00 61 19 97 07/04/19 01:57 65 16 118/72 97 07/04/19 01:42 59 L 17 107/68 96 07/04/19 01:30 59 L 18 96 07/04/19 01:27 60 18 129/75 97 PG Care Time/CCT Total # of Minutes Spent Total Time Spent with Patient: Total time spent is greater than 50% in coordination of care (as documented) at patient's floor/unit and/or counseling patient: Coding Level of Care Code 29121 Subseq Hosp Care Lvl [address] elevation (STEMI) myocardial infarction I21.11 Involved coronary artery: right coronary artery (1) ST elevation (STEMI) myocardial infarction Involved coronary artery: right coronary artery Qualified Code(s): I21.11 - ST elevation (STEMI) myocardial infarction involving right coronary artery
[2019-07-04 14:02] LABS: Partial Thromboplastin Ratio 2.6
[2019-07-04 14:18] LABS: Partial Thromboplastin Time 72.5 Seconds (21.0-31.0)
--- NOTE | 2019-07-04 16:27 | History & Physical Report ---
Date of Service July 04, 2019 Assessment & Plan (1) ST elevation (STEMI) myocardial infarction: -- Post angioplasty to mid RCA, distal RCA very-late stent thrombosis. -- Residual distal LAD disease 2. Ischemic cardiomyopathy -- EF 40-45%, inferior akinesis. 3. Paroxysmal atrial fibrillation, post prior AF ablation 4. Recent ICU stay in setting of flu/PNA 5. Rheumatoid arthritis. 6. NSVT -- Patient chest pain free and troponin peaked. -- Hemodynamically and electrically stable -- Mild pulmonary congestion on exam. -- Post procedure labs stable -- No access site complications. - Reviewed patient's angiography and discussed options for management of his RCA disease long-term. Significant residual disease in RCA and feel reasonable to attempt re-intervention from femoral artery approach. Tentatively plan on procedure saturday. - Continue heparin infusion in interim. - termite control representative plan on triple therapy with clopidogrel, xarelto and aspirin for 1 week then drop aspirin - transition nebivolol to metoprolol 12.5 mg BID and titrate up as able - continue to titrate up lisinopril. - can discontinue imdur - continue high-intensity statin - start PPI while on triple therapy Up in chair today, can transition to telemetry later today if remains stable. History of Present Illness Primary Care Provider: NO PCP Mr. Dao is a pleasant 68 year old man with a history of CAD post acute CO and RCA stenting ~10 yrs ago who was readmitted yesterday with after inferior CO treated with primary PCI. Other medical issues include rheumatoid arthritis on chronic steroids, hypertension, GERD, neuropathy. Prior history of PAF and post AF ablation. Has been on long-term xarelto. Clopidogrel stopped yrs ago. Does not follow with a peer health promoter currently. Was admitted to [facility] ICU last week in the setting of influenza A and PNA. Discharged on levofloxacin. Per patient report course complicated by recurrent AF. Chest pain began at rest ~10 AM, radiating down bilateral arms and reminiscent of prior CO. Initially presented to [facility] before life-flighted to [facility]. ECG with 4+ inferior ST elevations. Underwent emergent catheterization which showed distal RCA 100% very late stent thrombosis. Flow re-established with angioplasty but stent could not be delivered to distal vessel in the setting of diffuse upstream ectatic disease. Also had 70% distal LAD disease. Patient kept on heparin overnight. Troponin peaked at 78. No further chest pain. Rare ventricular ectopy on telemetry. Echo showed mild LV dysfunction with inferior akinesis. Allergies Allergy/AdvReac Type Severity Reaction Status Date / Time Penicillins Allergy Rash Verified 07/03/19 15:36 Sulfa (Sulfonamide Allergy Chest Pain Verified 07/03/19 15:36 Antibiotics) Home Medications Home Medications Medication Instructions Recorded Confirmed Type aspirin 81 mg PO DAILY 07/03/19 07/03/19 History calcium carbonate-vitamin D3 1 tab PO DAILY 07/03/19 07/03/19 History [Calcium 500 + D] cholecalciferol (vitamin D3) 0 unit PO DAILY 07/03/19 07/03/19 History [Vitamin D3] famotidine 20 mg PO DAILY PRN 07/03/19 07/03/19 History gabapentin 300 mg PO DAILY 07/03/19 07/03/19 History [id number]-[id number]-Bmdsdsado serr 1 tab PO DAILY 07/03/19 07/03/19 History [Osteo Bi-Flex (5-Loxin)] isosorbide mononitrate 60 mg PO QAM 07/03/19 07/03/19 History ketoconazole 1 applic TOPICAL DAILY PRN 07/03/19 07/03/19 History levofloxacin 750 mg PO DAILY 07/03/19 07/03/19 History levothyroxine 50 mcg PO DAILY 07/03/19 07/03/19 History multivitamin 1 cap PO DAILY 07/03/19 07/03/19 History nebivolol [Bystolic] 5 mg PO DAILY 07/03/19 07/03/19 History nitroglycerin [Nitrostat] 0.4 mg SUBLINGUAL UD 07/03/19 07/03/19 History prednisone 7.5 mg PO QDB 07/03/19 07/03/19 History ranitidine HCl 150 mg PO DAILY 07/03/19 07/03/19 History rivaroxaban [Xarelto] 20 mg PO DAILY 07/03/19 07/03/19 History rosuvastatin 20 mg PO HS 07/03/19 07/03/19 History salsalate 500 mg PO BID 07/03/19 07/03/19 History Past Med/Surg History Medical History (Updated 07/04/19 @ 09:38 by Ruddy Carter MD) Hypertension Myocardial infarct Ventricular tachycardia Social History Preferred Language: [place] Communication Ability: Effective Licensed Insurance Agent Required: No Beliefs That Will Affect Care: None Current Living Situation: Spouse Other Information That Helps Us Care for You: No Feels Safe at Home: Yes Safety Concerns: Feels Safe At This Time Smoking Status: Never smoker Do You Dip or Chew Tobacco: No ; Second Hand Exposure: No ; Tobacco Cessation Education Requested by Patient: No Hx Alcohol Use: No Hx Substance Use: No Review of Systems Review of Systems: All systems reviewed & are unremarkable except as noted in HPI & below Physical Exam Physical Exam: General: Comfortable, no acute distress Eyes: Sclerae anicteric, extraocular movements intact HENT: Oropharynx clear mucous membranes moist Neck: No JVD. Lungs: Few crackles at bases bilaterally Cardiac: Regular rate and rhythm, no murmurs Abdomen: Soft, nontender Neuro: Nonfocal Psych: Alert orient x3, normal affect and mood Extremities/Vascular: -- 2+ radial bilaterally -- RT radial pulse intact, no hematoma. intact distal sensation. -- No edema Results & Data Vital Signs (Past 12 Hours) Vital Signs Pulse Resp BP Pulse Ox 07/04/19 08:00 60 07/04/19 06:30 60 18 95 07/04/19 06:20 60 14 96 07/04/19 06:10 60 19 96 07/04/19 06:09 61 18 117/67 96 07/04/19 06:00 69 19 77 L 07/04/19 05:50 60 15 95 07/04/19 05:40 62 17 96 07/04/19 05:30 61 15 96 07/04/19 05:27 62 11 L 123/72 97 07/04/19 05:20 62 14 97 07/04/19 05:12 63 18 127/70 97 07/04/19 05:10 63 13 97 07/04/19 05:00 63 16 96 07/04/19 04:57 64 18 114/70 96 07/04/19 04:50 62 26 H 96 07/04/19 04:42 63 19 130/75 97 07/04/19 04:40 61 18 97 07/04/19 04:30 60 17 96 07/04/19 04:27 60 16 116/70 96 07/04/19 04:20 61 18 96 Code Status & VTE Plan VTE Prophylaxis Plan VTE Prophylaxis will be ordered: Yes PG Care Time/CCT Total # of Minutes Spent Total Time Spent with Patient: Total time spent is greater than 50% in coordination of care (as documented) at patient's floor/unit and/or counseling patient: Coding Level of Care Code 80621 Initial Inpt Care Lvl [address] elevation (STEMI) myocardial infarction I21.11 Involved coronary artery: right coronary artery (1) ST elevation (STEMI) myocardial infarction Involved coronary artery: right coronary artery Qualified Code(s): I21.11 - ST elevation (STEMI) myocardial infarction involving right coronary artery
--- NOTE | 2019-07-04 17:51 | Electrocardiogram Report ---
Test Reason : Blood Pressure : / mmHG Vent. Rate : 070 BPM Atrial Rate : 070 BPM P-R Int : 168 ms QRS Dur : 094 ms QT Int : 422 ms P-R-T Axes : 036 -45 -44 degrees QTc Int : 455 ms Normal sinus rhythm Left axis deviation Serial changes of evolving Inferior infarct (cited on or before 03-JUL-2019) Abnormal ECG When compared with ECG of 03-JUL-2019 14:00, Confirmed by Gordo Thompson ([id number]) on 07/04/2019 5:51:07 PM Referred By: REFERRED SELF Confirmed By:Gordo Thompson
[2019-07-04] MEDS: METOPROLOL TARTRATE 25 MG TAB PO SCH (20:43)
[2019-07-04] MEDS: LEVOTHYROXINE SODIUM 50 MCG TABLET PO SCH (20:43)
[2019-07-04] MEDS: ROSUVASTATIN CALCIUM 20 MG TAB PO SCH (20:43)
[2019-07-04 21:15] LABS: Partial Thromboplastin Ratio 2.3
[2019-07-04 21:38] LABS: Partial Thromboplastin Time 65.2 Seconds (21.0-31.0)
[2019-07-05 04:25] LABS: BUN Creatinine Ratio 13.7 (10-20); Calcium 8.5 mg/dl (8.5-10.1); Creatinine Clr Calc Pharmacy 93.4 ml/min; Est GFR (African American) 109.4; Est GFR (Non-African American) 94.4; Magnesium 2.1 mg/dl (1.8-2.4); Potassium 3.5 mmol/L (3.5-5.1)
[2019-07-05 04:28] LABS: Partial Thromboplastin Ratio 2.6
[2019-07-05 04:31] LABS: Partial Thromboplastin Time 72.9 Seconds (21.0-31.0)
[2019-07-05] MEDS ORDERED: POTASSIUM CHLORIDE 20 MEQ TABCR PO STA (04:39)
[2019-07-05] MEDS: HEPARIN SODIUM/DEXTROSE 25,000 UNITS/500 ML BAG IV SCH (07:57)
[2019-07-05] MEDS: ASPIRIN 81 MG ECTAB PO SCH (08:00)
[2019-07-05] MEDS: CLOPIDOGREL BISULFATE 75 MG TAB PO SCH (08:00)
[2019-07-05] MEDS: predniSONE 2.5 MG TAB PO SCH (08:00)
[2019-07-05] MEDS: GABAPENTIN 300 MG CAP PO SCH ×2 (08:00→21:28)
[2019-07-05] MEDS: FAMOTIDINE 20 MG TAB PO SCH (08:00)
[2019-07-05] MEDS: PANTOprazole 40 MG TAB PO SCH (08:00)
[2019-07-05] MEDS: lisinopriL 5 MG TAB PO SCH (08:03)
[2019-07-05] MEDS: METOPROLOL TARTRATE 25 MG TAB PO SCH ×2 (08:03→21:29)
--- NOTE | 2019-07-05 10:21 | Cardiology Progress Note ---
Date of Service July 05, 2019 Assessment & Plan (1) ST elevation (STEMI) myocardial infarction: -- Post angioplasty to mid RCA, distal RCA very-late stent thrombosis. -- Residual distal LAD disease 2. Ischemic cardiomyopathy -- EF 40-45%, inferior akinesis. 3. Paroxysmal atrial fibrillation, post prior AF ablation 4. Recent ICU stay in setting of flu/PNA 5. Rheumatoid arthritis. 6. NSVT Patient remains chest pain free. Hemodynamically and electrically stable. No signs of heart failure. 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 -- continue aspirin/clopidogrel -- increase metoprolol to 25mg BID -- continue lisinopril -- can transition to telemetry later today if remains stable. Admission and Anticipated Discharge Date Admission Date: July 03, 2019 Subjective Patient remains chest pain free. Has been up to chair. No other new concerns. Telemetry unremarkable. Review of Systems Review of Systems: All systems reviewed & are unremarkable except as noted in HPI & below Physical Exam Physical Exam: General: Comfortable, no acute distress Eyes: Sclerae anicteric, extraocular movements intact HENT: Oropharynx clear mucous membranes moist Neck: No JVD. Lungs: Few crackles at base on left Cardiac: Regular rate and rhythm, no murmurs Abdomen: Soft, nontender Neuro: Nonfocal Psych: Alert orient x3, normal affect and mood Extremities/Vascular: -- 2+ radial bilaterally -- RT radial pulse intact, no hematoma. intact distal sensation. -- No edema Results & Data ([facility]) Vital Signs (Past 12 Hours) Vital Signs Pulse 07/05/19 07:13 59 L PG Care Time/CCT Total # of Minutes Spent Total Time Spent with Patient: Total time spent is greater than 50% in coordination of care (as documented) at patient's floor/unit and/or counseling patient: Coding Level of Care Code 84082 Subseq Hosp Care Lvl [address] elevation (STEMI) myocardial infarction I21.11 Involved coronary artery: right coronary artery (1) ST elevation (STEMI) myocardial infarction Involved coronary artery: right coronary artery Qualified Code(s): I21.11 - ST elevation (STEMI) myocardial infarction involving right coronary artery
[2019-07-05] MEDS ORDERED: NITROGLYCERIN SL 0.4 MG/TAB TAB SL PRN (11:11)
[2019-07-05 11:28] LABS: Partial Thromboplastin Ratio 2.3
[2019-07-05 11:35] LABS: Partial Thromboplastin Time 63.7 Seconds (21.0-31.0)
--- NOTE | 2019-07-05 18:34 | Hospitalist Consultation ---
Date of Consultation July 05, 2019 Assessment & Plan (1) ST elevation (STEMI) myocardial infarction: Presented as a [facility] heart alert on 07/02 with Chest pain and inferior ST elevations. Underwent emergent catheterization which showed distal RCA 100% very late stent thrombosis. Flow re-established with angioplasty but stent could not be delivered to distal vessel in the setting of diffuse upstream ectatic disease. Also had 70% distal LAD disease. Troponin peaked at 78. No further chest pain. Rare ventricular ectopy on telemetry. Echo showed mild LV dysfunction with inferior akinesis but he has no clinical signs of acute CHF -Continue heparin drip and will be on hold for repeat cardiac catheterization on Saturday to attempt placement of stent in the distal RCA -Continue aspirin, clopidogrel, and will restart Xarelto after cardiac catheterization-triple therapy planned x1 week followed by discontinuation of aspirin as per cardiology consultation -Continue Crestor 20 mg p.o. at bedtime-check lipid panel in the morning and consideration to be made for an increase in dose to 40 mg -Continue Protonix while on triple therapy -Started on lisinopril 5 mg daily and his Bystolic was changed to metoprolol tartrate 25 mg p.o. twice daily -Continue telemetry monitoring -Cardiology is managing (2) CAD (coronary artery disease): As above With a history of MT and stent placement in 2009. Had repeat cardiac catheterization approximately 2 to 3 years ago that he reports was stable from previous He follows with a Dr. Johnson at [facility] -Continue medications as noted above -He is currently not on his isosorbide from home as per cardiology recommendation (3) Hypertension: Blood pressures well controlled -Continue metoprolol, lisinopril -Home Bystolic has been discontinued -Home isosorbide has been discontinued (4) Ventricular tachycardia: Had some nonsustained V. tach here after his STEMI which is now improved Mildly decreased EF on echocardiogram -Continue metoprolol (5) Ischemic cardiomyopathy: Echo showed mild LV dysfunction with inferior akinesis -Treatment outlined as above No evidence of acute CHF (6) Paroxysmal atrial fibrillation: With a history of such and is status post A. fib ablation in the past -Home Xarelto is on hold -Monitor on telemetry (7) Chronic steroid use: For rheumatoid arthritis -Continue home prednisone 7.5 mg daily -No stress dose steroids needed at this time (8) Rheumatoid arthritis: Follows with public works supervisor Dr. Eve Banuelos in [place] -Continue home prednisone -Holding home salsalate (9) Hypothyroidism: -Continue home levothyroxine -Check TSH in the morning (10) Peripheral neuropathy: Continue gabapentin 3 mg p.o. twice daily Unknown etiology and patient does not know-no history of diabetes (11) Thrombocytosis: Platelets in the 500s on admission and now down in the 400s, likely acute phase reactant Did have recent ICU stay for 1 week for influenza and pneumonia and now here with STEMI -Follow CBC (12) Pneumonia: As above, had a recent one-week hospital stay reportedly in the ICU at [facility] for influenza and pneumonia Completed courses of Tamiflu and levofloxacin after discharge Chest x-ray here without any evidence of pneumonia Lung exam is normal and he has no symptoms, afebrile Resolved (13) GERD (gastroesophageal reflux disease): -Continue home Pepcid -Continues on Protonix while on triple therapy as per cardiology recommendation (14) DVT prophylaxis: Heparin drip Disposition-remain on PCU, for cardiac catheterization on Saturday and hopefully discharged home on Saturday Hospitalist service will follow along History of Present Illness Reason for Consultation: Post-ICU medical management Requesting Physician: Dr. Tse Attending Physician: Jm Soto MD History of Present Illness This patient is a 68-year-old male with history of CAD status post stent placement in 2009, rheumatoid arthritis on chronic prednisone, GERD, hypertension, neuropathy, paroxysmal atrial fibrillation status post ablation, and hypothyroidism, who presents as a [facility] for a heart alert on 07/02. He had a recent hospital stay at [facility] for influenza and pneumonia; he was discharged home the week prior to this admission. He sustained onset of Chest pain began at rest, was radiating down bilateral arms and reminiscent of prior MT. Initially presented to [place] before life- flighted to [facility]. ECG with 4+ inferior ST elevations as per cardiology. He underwent emergent catheterization here which showed distal RCA 100% very late stent thrombosis. Flow re-established with angioplasty but stent could not be delivered to distal vessel in the setting of diffuse upstream ectatic disease. Also had 70% distal LAD disease. Patient kept on heparin drip and has been in the ICU for the last 2 days. His troponin peaked at 78 and he has had no further chest pain. He had some rare ventricular ectopy on telemetry. Echo showed mild LV dysfunction with inferior akinesis. He is now transferred out of the ICU to the PCU, and is awaiting a repeat cardiac catheterization with plans to try to place stent in the distal RCA on Saturday. He is feeling well, denies any cough or shortness of breath, no further chest pain. Denies nausea or vomiting. He is tolerating p.o. He last moved his bowels yesterday. He is making urine and has no complaints. Allergies Allergy/AdvReac Type Severity Reaction Status Date / Time Penicillins Allergy Rash Verified 07/03/19 15:36 Sulfa (Sulfonamide Allergy Chest Pain Verified 07/03/19 15:36 Antibiotics) Home Medications Home Medications Medication Instructions Recorded Confirmed Type aspirin 81 mg PO DAILY 07/03/19 07/03/19 History calcium carbonate-vitamin D3 1 tab PO DAILY 07/03/19 07/03/19 History [Calcium 500 + D] cholecalciferol (vitamin D3) 0 unit PO DAILY 07/03/19 07/03/19 History [Vitamin D3] famotidine 20 mg PO DAILY PRN 07/03/19 07/03/19 History gabapentin 300 mg PO BID 07/03/19 07/05/19 History [id number] serr 1 tab PO DAILY 07/03/19 07/03/19 History [Osteo Bi-Flex (5-Loxin)] isosorbide mononitrate 60 mg PO QAM 07/03/19 07/03/19 History ketoconazole 1 applic TOPICAL DAILY PRN 07/03/19 07/03/19 History levothyroxine 50 mcg PO DAILY 07/03/19 07/03/19 History multivitamin 1 cap PO DAILY 07/03/19 07/03/19 History nebivolol [Bystolic] 5 mg PO DAILY 07/03/19 07/03/19 History nitroglycerin [Nitrostat] 0.4 mg SUBLINGUAL UD 07/03/19 07/03/19 History prednisone 7.5 mg PO QDB 07/03/19 07/03/19 History rivaroxaban [Xarelto] 20 mg PO DAILY 07/03/19 07/03/19 History rosuvastatin 20 mg PO HS 07/03/19 07/03/19 History salsalate 500 mg PO BID 07/03/19 07/03/19 History Patient History Medical History (Updated 07/05/19 @ 19:45 by Eve Davidson MD) Chronic steroid use GERD (gastroesophageal reflux disease) Hypertension Hypothyroidism Ischemic cardiomyopathy Myocardial infarct Paroxysmal atrial fibrillation Peripheral neuropathy Rheumatoid arthritis Ventricular tachycardia Surgical History History of radiofrequency ablation procedure for cardiac arrhythmia Family History Other Family history non-contributory Social History Preferred Language: Uzbek Communication Ability: Effective Clinical Professor Required: No Beliefs That Will Affect Care: None marital status: Current Living Situation: Spouse current occupational status: employed 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 Other Information That Helps Us Care for You: No Feels Safe at Home: Yes Safety Concerns: Feels Safe At This Time Smoking Status: Never smoker Do You Dip or Chew Tobacco: No ; Second Hand Exposure: No ; Tobacco Cessation Education Requested by Patient: No Hx Alcohol Use: No Hx Substance Use: No Review of Systems Review of Systems: All systems reviewed & are unremarkable except as noted in HPI & below Physical Exam Constitutional: WD/WN, vitals as above Eyes: + anicteric sclerae ENMT: external ear and nose normal, oropharynx normal Neck: trachea midline, no thyromegaly Respiratory: normal respiratory effort, lungs clear to auscultation Cardiovascular: RRR, no murmur, no edema Chest (Breasts): Chest: normal inspection of chest Gastrointestinal (Abdomen): normal bowel sounds, soft, nontender, no hepatosplenomegaly Musculoskeletal: Extremities: extremities normal to inspection; no cyanosis and no clubbing Skin: no rashes, warm and dry Neurologic: moves all extremities and awake; no focal motor deficits Psychiatric: A+Ox3, euthymic affect Lymphatic: no lymphedema Results & Data ([facility]) Vital Signs (Past 12 Hours) Vital Signs Temp Pulse Pulse Resp BP BP Pulse Ox 07/05/19 17:27 36.7 C 66 18 111/67 100 07/05/19 16:00 65 07/05/19 15:00 61 20 98 07/05/19 14:40 57 L 20 116/59 L 98 07/05/19 14:33 57 L 18 91/53 L 95 07/05/19 14:30 58 L 18 95 07/05/19 14:10 59 L 19 91/53 L 95 07/05/19 14:00 61 22 96 07/05/19 13:40 65 16 101/60 98 07/05/19 13:30 63 24 97 07/05/19 13:10 65 19 102/57 L 98 07/05/19 13:00 66 20 97 07/05/19 12:40 67 22 101/54 L 97 07/05/19 12:30 67 20 98 07/05/19 12:10 67 19 96/63 L 97 07/05/19 12:00 72 22 97 07/05/19 11:40 65 15 116/68 94 07/05/19 11:30 57 L 17 96 07/05/19 11:10 59 L 16 99/61 L 96 07/05/19 11:00 58 L 15 97 07/05/19 10:40 57 L 8 L 105/64 95 07/05/19 10:30 57 L 14 96 07/05/19 10:10 59 L 18 115/68 98 07/05/19 10:00 59 L 14 97 07/05/19 09:40 59 L 14 103/66 98 07/05/19 09:30 61 21 98 07/05/19 09:09 63 19 112/66 96 07/05/19 09:00 63 14 97 07/05/19 08:40 65 19 103/67 96 07/05/19 08:30 73 27 H 98 07/05/19 08:10 64 18 107/63 97 07/05/19 08:00 37 C 61 17 98 07/05/19 07:52 65 16 103/63 98 07/05/19 07:30 70 27 H 94 07/05/19 07:13 59 L 07/05/19 07:10 60 15 116/67 95 07/05/19 07:00 57 L 22 94 07/05/19 06:40 58 L 18 118/70 95 Laboratory Results 07/05/19 07/05/19 07/05/19 Range/Units 10:47 03:59 03:59 APTT 63.7 H* 72.9 H* (21.0-31.0) Seconds PTT Ratio 2.3 2.6 Sodium 138 (136-145) mmol/L Potassium 3.5 (3.5-5.1) mmol/L Chloride 108 H (98-107) mmol/L Carbon Dioxide 24 (21-32) mmol/L Anion Gap 6.0 (3-11) BUN 10 (7-18) mg/dl Creatinine 0.76 (0.6-1.4) mg/dl Est Cr Clr Drug Dosing 93.4 ml/min Est GFR ( Amer) 109.4 Est GFR (Non-Af Amer) 94.4 BUN/Creatinine Ratio 13.7 (10-20) Glucose 84 (70-99) mg/dl Calcium 8.5 (8.5-10.1) mg/dl Phosphorus 3.0 (2.5-4.9) mg/dl Magnesium 2.1 (1.8-2.4) mg/dl 07/04/19 Range/Units 20:44 APTT 65.2 H* (21.0-31.0) Seconds PTT Ratio 2.3 Sodium (136-145) mmol/L Potassium (3.5-5.1) mmol/L Chloride (98-107) mmol/L Carbon Dioxide (21-32) mmol/L Anion Gap (3-11) BUN (7-18) mg/dl Creatinine (0.6-1.4) mg/dl Est Cr Clr Drug Dosing ml/min Est GFR ( Amer) Est GFR (Non-Af Amer) BUN/Creatinine Ratio (10-20) Glucose (70-99) mg/dl Calcium (8.5-10.1) mg/dl Phosphorus (2.5-4.9) mg/dl Magnesium (1.8-2.4) mg/dl PG Care Time/CCT Total # of Minutes Spent Total Time Spent with Patient: Total time spent is greater than 50% in coordination of care (as documented) at patient's floor/unit and/or counseling patient: Coding Level of Care Code 18598 Inpt Consult Level [address] elevation (STEMI) myocardial infarction I21.11 Involved coronary artery: right coronary artery CAD (coronary artery disease) I25.10 Hypertension I10 Ventricular tachycardia I47.2 Ischemic cardiomyopathy I25.5 Paroxysmal atrial fibrillation I48.0 Chronic steroid use Rheumatoid arthritis M06.9 Hypothyroidism E03.9 Peripheral neuropathy G62.9 Thrombocytosis D47.3 Pneumonia J18.9 GERD (gastroesophageal reflux disease) K21.9 DVT prophylaxis Z29.9 (1) ST elevation (STEMI) myocardial infarction Involved coronary artery: right coronary artery Qualified Code(s): I21.11 - ST elevation (STEMI) myocardial infarction involving right coronary artery
[2019-07-05] MEDS: LEVOTHYROXINE SODIUM 50 MCG TABLET PO SCH (21:29)
[2019-07-05] MEDS: ROSUVASTATIN CALCIUM 20 MG TAB PO SCH (21:29)
[2019-07-06 04:00] LABS: Basophils # (auto) 0.04 K/uL (0-0.2); Basophils % (auto) 0.7 %; Eosinophils # (auto) 0.21 K/uL (0-0.5); Eosinophils % (auto) 3.5 %; Hematocrit (blood only) 40.3 % (42-52); Hemoglobin 13.8 g/dL (14.0-18.0); Immature Granulocytes # (auto) 0.06 K/uL (0.00-0.02); Lymphocytes # (auto) 1.23 K/uL (1.2-3.4); Lymphocytes % (auto) 20.7 %; Mean Corpuscular Hemoglobin 30.8 pg (25-34); Mean Corpuscular Hgb Conc 34.2 g/dL (32-36); Mean Platelet Volume 9.9 fL (7.4-10.4); Monocytes # (auto) 0.69 K/uL (0.11-0.59); Monocytes % (auto) 11.6 %; Neutrophils # (auto) 3.72 K/uL (1.4-6.5); Neutrophils % (auto) 62.5 %; Platelet Count 366 K/uL (130-400); RDW Coefficient of Variation 12.9 % (11.5-14.5); RDW Standard Deviation 41.8 fL (36.4-46.3); Red Blood Count 4.48 M/uL (4.7-6.1); White Blood Count 5.95 K/uL (4.8-10.8)
[2019-07-06 04:16] LABS: BUN Creatinine Ratio 13.5 (10-20); Calcium 8.6 mg/dl (8.5-10.1); Creatinine Clr Calc Pharmacy 95.6 ml/min; Est GFR (African American) 111.2; Potassium 3.7 mmol/L (3.5-5.1)
[2019-07-06 04:22] LABS: Partial Thromboplastin Ratio 2.7
[2019-07-06 04:27] LABS: Thyroid Stimulating Hormone 3.22 uIu/ml (0.300-4.500)
[2019-07-06 04:38] LABS: Partial Thromboplastin Time 75.9 Seconds (21.0-31.0)
[2019-07-06] MEDS: METOPROLOL TARTRATE 25 MG TAB PO SCH ×2 (08:18→20:57)
[2019-07-06] MEDS: GABAPENTIN 300 MG CAP PO SCH ×2 (08:18→20:58)
[2019-07-06] MEDS: HEPARIN SODIUM/DEXTROSE 25,000 UNITS/500 ML BAG IV SCH (08:18)
[2019-07-06] MEDS: PANTOprazole 40 MG TAB PO SCH (08:18)
[2019-07-06] MEDS: FAMOTIDINE 20 MG TAB PO SCH (08:18)
[2019-07-06] MEDS: lisinopriL 5 MG TAB PO SCH (08:18)
[2019-07-06] MEDS: CLOPIDOGREL BISULFATE 75 MG TAB PO SCH (08:19)
[2019-07-06] MEDS: predniSONE 2.5 MG TAB PO SCH (08:19)
[2019-07-06] MEDS: ASPIRIN 81 MG ECTAB PO SCH (08:19)
[2019-07-06] MEDS: CALCIUM 600MG + VIT D 400 IU TAB PO SCH (08:19)
[2019-07-06] MEDS ORDERED: FAMOTIDINE 20 MG TAB PO PRN (09:47)
--- NOTE | 2019-07-06 10:16 | Hospitalist Progress Note ---
Date of Service July 06, 2019 Assessment & Plan (1) ST elevation (STEMI) myocardial infarction: Presented as a [facility] heart alert on 07/02 with Chest pain and inferior ST elevations. Underwent emergent catheterization which showed distal RCA 100% very late stent thrombosis. Flow re-established with angioplasty but stent could not be delivered to distal vessel in the setting of diffuse upstream ectatic disease. Also had 70% distal LAD disease. Troponin peaked at 78. No further chest pain. Rare ventricular ectopy on telemetry. Echo showed mild LV dysfunction with inferior akinesis but he has no clinical signs of acute CHF - Continue heparin drip and will be on hold for repeat cardiac catheterization on Saturday to attempt placement of stent in the distal RCA - Continue aspirin, clopidogrel, and will restart Xarelto after cardiac catheterization-triple therapy planned x1 week followed by discontinuation of aspirin as per cardiology consultation - Continue Crestor 20 mg p.o. at bedtime-check lipid panel in the morning and consideration to be made for an increase in dose to 40 mg - Continue Protonix while on triple therapy - Started on lisinopril 5 mg daily and his Bystolic was changed to metoprolol tartrate 25 mg p.o. twice daily - Continue telemetry monitoring - Cardiology is managing (2) CAD (coronary artery disease): As above With a history of MD and stent placement in 2009. Had repeat cardiac catheterization approximately 2 to 3 years ago that he reports was stable from previous He follows with a Dr. Johnson at [facility] -Continue medications as noted above -He is currently not on his isosorbide from home as per cardiology recommendation (3) Hypertension: Blood pressures well controlled -Continue metoprolol, lisinopril -Home Bystolic has been discontinued -Home isosorbide has been discontinued (4) Ventricular tachycardia: Had some nonsustained V. tach here after his STEMI which is now improved Mildly decreased EF on echocardiogram Telemetry SR 50-60s -Continue metoprolol (5) Ischemic cardiomyopathy: Echo showed mild LV dysfunction with inferior akinesis -Treatment outlined as above No evidence of acute CHF (6) Paroxysmal atrial fibrillation: With a history of such and is status post A. fib ablation in the past. Currently in sinus rhythm. -Home Xarelto is on hold -Monitor on telemetry (7) Chronic steroid use: For rheumatoid arthritis -Continue home prednisone 7.5 mg daily -No stress dose steroids needed at this time (8) Rheumatoid arthritis: Follows with lehr tender Dr. Eve Banuelos in [place] -Continue home prednisone -Holding home salsalate (9) Hypothyroidism: -Continue home levothyroxine -TSH 3.22. (10) Peripheral neuropathy: Continue gabapentin 300 mg p.o. twice daily Unknown etiology and patient does not know-no history of diabetes (11) Thrombocytosis: Platelets in the 500s on admission and now down in the 400s, likely acute phase reactant Did have recent ICU stay for 1 week for influenza and pneumonia and now here with STEMI -Follow CBC (12) Pneumonia: As above, had a recent one-week hospital stay reportedly in the ICU at [facility] for influenza and pneumonia Completed courses of Tamiflu and levofloxacin after discharge Chest x-ray here without any evidence of pneumonia Lung exam is normal and he has no symptoms, afebrile No current symptoms of this. (13) GERD (gastroesophageal reflux disease): -Continue home Pepcid PRN -Continues on Protonix while on triple therapy as per cardiology recommendation (14) DVT prophylaxis: Heparin drip, on hold for cardiac cath Disposition-remain on PCU, for cardiac catheterization today and hopefully discharged home tomorrow Hospitalist service will follow along Admission and Anticipated Discharge Date Admission Date: July 03, 2019 Anticipated date of discharge: 07/07/19 Subjective Chest pain free since prior cardiac cath. No shortness of breath. Lying in bed this morning awaiting cardiac cath today. No other concerns or questions. Chronic medications reviewed with patient and reports his rheumatoid arhtritis under control with current prednisone dosing. Uses pepcid PRN. Review of Systems Review of Systems: All systems reviewed & are unremarkable except as noted in HPI & below Physical Exam Constitutional: well developed and well nourished; no acute distress Eyes: + anicteric sclerae; normal pupil size ENMT: external ear and nose normal, oropharynx normal Mallampati Class: III Neck: trachea midline Respiratory: normal respiratory effort; no respiratory distress Auscultation: lungs clear to auscultation bilaterally; no crackles and no wheezes Cardiovascular: Rate/Rhythm: regular rate and regular rhythm Heart Sounds: no murmur Vessels: no JVD Extremities: normal capillary refill; no calf tenderness and no pedal edema Chest (Breasts): Chest: normal inspection of chest Gastrointestinal (Abdomen): Inspection/Auscultation: abdomen normal to inspection and normal bowel sounds Percussion/Palpation: abdomen soft; abdomen nontender, no guarding and abdomen not rigid Musculoskeletal: no cyanosis or clubbing, extremities motor strength 5/5 Skin: no rashes, warm and dry Neurologic: moves all extremities and awake; not confused Psychiatric: A+Ox3, euthymic affect Results & Data ([facility]) Vital Signs (Past 12 Hours) Vital Signs Temp Pulse Pulse Resp BP Pulse Ox 07/06/19 08:20 61 07/06/19 08:00 36.5 C 50 L 16 139/68 96 07/06/19 02:52 36.4 C L 56 L 16 134/78 98 07/05/19 23:09 36.4 C L 60 16 119/69 97 07/05/19 23:00 74 PG Care Time/CCT Total # of Minutes Spent Total Time Spent with Patient: Total time spent is greater than 50% in coordination of care (as documented) at patient's floor/unit and/or counseling patient: Coding Level of Care Code 66328 Subseq Hosp Care Lvl [address] elevation (STEMI) myocardial infarction I21.11 Involved coronary artery: right coronary artery CAD (coronary artery disease) I25.10 Hypertension I10 Ventricular tachycardia I47.2 Ischemic cardiomyopathy I25.5 Paroxysmal atrial fibrillation I48.0 Chronic steroid use Rheumatoid arthritis M06.9 Rheumatoid arthritis location: multiple sites Rheumatoid factor presence: unspecified presence Hypothyroidism E03.9 Peripheral neuropathy G62.9 Peripheral neuropathy type: polyneuropathy, unspecified Thrombocytosis D47.3 Pneumonia J18.9 Pneumonia type: due to unspecified organism Laterality: unspecified laterality Lung location: unspecified part of lung GERD (gastroesophageal reflux disease) K21.9 DVT prophylaxis Z29.9 (1) ST elevation (STEMI) myocardial infarction Involved coronary artery: right coronary artery Qualified Code(s): I21.11 - ST elevation (STEMI) myocardial infarction involving right coronary artery (2) Rheumatoid arthritis Rheumatoid arthritis location: multiple sites Rheumatoid factor presence: unspecified presence Qualified Code(s): M06.9 - Rheumatoid arthritis, unspecified (3) Peripheral neuropathy Peripheral neuropathy type: polyneuropathy, unspecified Qualified Code(s): G62.9 - Polyneuropathy, unspecified (4) Pneumonia Pneumonia type: due to unspecified organism Laterality: unspecified laterality Lung location: unspecified part of lung Qualified Code(s): J18.9 - Pneumonia, unspecified organism
[2019-07-06] MEDS ORDERED: MIDAZOLAM HCL 1 MG/ML 2ML VIAL ONE (12:15)
[2019-07-06] MEDS ORDERED: NiCARDipine HCL INJ 2.5 MG/ML 10 ML AMP ONE (12:15)
[2019-07-06] MEDS ORDERED: HEPARIN (PORCINE) 1000 UNIT/ML 10 ML (CATH LAB USE ONLY) ONE (12:15)
[2019-07-06] MEDS ORDERED: fentaNYL citrate 100 MCG/2 ML VIAL ONE (12:15)
[2019-07-06] MEDS ORDERED: NITROGLYCERIN/D5W 100MCG/ML 20ML SYR ONE (12:16)
[2019-07-06] MEDS ORDERED: ATROPINE SULFATE 0.1 MG/ML 10ML SYR IV ONE (13:13)
--- NOTE | 2019-07-06 14:50 | Post Anesthesia Assessment ---
Date of Service July 06, 2019 Post Sedation Assessment Vital Signs Temp Pulse Pulse Resp BP Pulse Ox 07/06/19 14:28 57 L 20 102/56 L 96 07/06/19 14:25 58 L 20 104/59 L 97 07/06/19 14:20 59 L 20 108/65 98 07/06/19 14:15 58 L 20 105/62 96 07/06/19 11:50 98.8 F 59 L 18 144/69 H 97 07/06/19 08:20 61 07/06/19 08:00 97.7 F 61 50 L 16 139/68 96 07/06/19 02:52 97.5 F L 56 L 16 134/78 98 07/05/19 23:09 97.5 F L 60 16 119/69 97 07/05/19 23:00 74 07/05/19 19:47 97.7 F 62 18 116/70 98 07/05/19 17:27 98.1 F 66 18 111/67 100 07/05/19 16:00 65 07/05/19 15:00 61 20 98 Recovery Score Activity: Moves 4 extremities Respiration: Deep Breath/Cough Circulation: +/-20% PreAnes Value Consciousness: Fully Awake Oxygen Saturation: > 92% On Room Air Post Anesthesia Score: 10 Discharge Sedation Level of Care: Fast Track Phase II Post Sedation Plan On clinical assessment, the patient appears to have tolerated the sedation without complications. Patient is recovering as anticipated. Patient will continue to be monitored by nursing and may be discharged when sedation discharge criteria are met per below protocol. Upon Completions of procedure up to 15 minutes continue every 5 minute vital signs and the P.A.R. score; then discharge to a Phase I or Fast Track to Phase II per the following guidelines: * Discharge Patient to appropriate Phase II area if PAR is 8 or greater or return to pre- procedure baseline. The post - procedure orders will be as directed. * If PAR score is less than 8 or not return to pre-procedure baseline then patient will follow Phase I monitoring till PAR is reached for Phase II. The Phase I may be done in procedure room or may call to secure a Phase I area. * If naloxone or flumazenil are used for reversal, hold in Phase I for continued monitoring from when last reversal dose was given for a minimum of 60 minutes or longer pending the nurse and/or physician discretion of patient condition before discharge to Phase II. Please call the Sedation Physician to re-evaluate and complete post-note for discharge to Phase II area. Do NOT discharge from procedure sedation or Phase 1 until post- sedation evaluation note is complete by procedure /sedation MD Sedation Discharge Instructions to be given to the patient at discharge to home.
--- NOTE | 2019-07-06 14:54 | Cardiac Catheterization ---
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 Cardiac Status Clinical evaluation leading to the procedure CAD Presenation: STEMI Anginal Classification: CCS IV Heart Failure: No Cardiogenic Shock within 24 Hours: No Cardiac Arrest within 24 Hours: No Imaging Studies Past 6 Months: Yes Stress Studies Past 6 Months: No Diagnostic Physicians Name: Jeff Tse MD Status: Elective Closure Device Percutaneous Entry Location: Femoral Closure Device: Angio-Seal Recommendations: Medical Therapy and/or Counseling Intraprocedure Events Significant Disection: No Perforation: No Cardiac Cath Procedure Full Procedure Date July 06, 2019 Pre-Procedure Diagnosis Pre-Procedure Diagnosis: CAD AUC Score AUC Score: 7 Post-Procedure Diagnosis Post-Procedure Diagnosis: Severe CAD Procedure(s) Performed Procedure(s) Performed: Coronary Angiography Quality And Reliability Engineer Jeff Tse MD Automatic Washer Mechanic(s) Jose Estimated Blood Loss Estimated Blood Loss: <20 ml Medication(s) Medication(s): Fentanyl, Lidocaine 1% and Versed Summary of Findings Indication: Recent inferior STEMI post PCTA with residual severe RCA disease Access: 6 Fr right common femoral artery under ultrasound guidance Catheters: AR-1 guide, diagnostic JR4 Findings: Left Main: large. Mild <30% LAD: large, transapical. Proximal with mild disease, mid up to 40%, distal vessel with mild to moderate diffuse disease and myocardial bridging. LCx: large, nondominant Prox and mid mild disease. RCA: large caliber and dominant. Diffuse disease and ectasia. Proximal 20-30%. At RVM long eccentric calcified 30-40%. RVM prox 99%. Then ectasia/aneurysm before mid stent. Widely patent latemid RCA stent, distal RCA in between stents widely patent without significant residual stenosis, distal RCA stent widely patent. PDA ostium with minimal residual stenosis and DOMENICA-3 flow. Arterial Closure: Angio-Seal Summary: 1. Moderate residual RCA disease with widely patent RCA stents Recommendations: No need for additional intervention. Can discontinue heparin. Can resume Xarelto tomorrow morning. Continue aspirin, clopidogrel for 1 week then clopidogrel and anticoagulation indefinitely. Hemodynamics Rest Ao:: 94/45/64 Final Ao: 100/45/92 LV: -- Recommendations Recommendations: Medical Therapy and/or Counseling Specimens Specimens: None Radiation Exposure (mGy) 399 Contrast (mls) 50 Fluids (cc crystalloids) Fluids (cc crystalloids): 94 Drains Drains: none Anesthesia moderate Procedural Complication(s) None Disposition PCU I attest to the content of the Intraoperative Record and any orders documented therein. Any exceptions are noted below. [facility] Card Cath Procedure Codes Cardiac Catheterization Procedure 1: Cardiovascular Cath Procedures: 03154 Coronaries Therapeutic Services & Ancillary Proc Procedure 1: Cardiovascular Tx and Anc Procedures: 44624 Ultrasonic Guidance Vascular Access PG Care Time/CCT Total # of Minutes Spent Total Time Spent with Patient: Total time spent is greater than 50% in coordination of care (as documented) at patient's floor/unit and/or counseling patient:
[2019-07-06] MEDS ORDERED: SODIUM CHLORIDE 0.9% 1000ML 1,000 ML IV SCH (15:00)
--- NOTE | 2019-07-06 15:56 | Cardiology Progress Note ---
Date of Service July 06, 2019 Assessment & Plan (1) ST elevation (STEMI) myocardial infarction: -- Post angioplasty to mid RCA, distal RCA very-late stent thrombosis. 2. Ischemic cardiomyopathy -- EF 40-45%, inferior akinesis. 3. Paroxysmal atrial fibrillation, post prior AF ablation 4. Recent ICU stay in setting of flu/PNA 5. Rheumatoid arthritis. 6. NSVT RCA has healed well. No severe residual disease and DOMENICA 3 flow throughout RCA system. No evidence of severe distal LAD disease today. Remains chest pain free. Hemodynamically and electrically stable. No signs of heart failure. -- Can discontinue heparin infusion -- Can resume xarelto tomorrow AM -- continue aspirin/clopidogrel. Discontinue aspirin in 1 week -- continue lisinopril, metoprolol and statin. -- Likely home tomorrow AM. Admission and Anticipated Discharge Date Admission Date: July 03, 2019 Subjective Patient remains chest pain free. Repeat coronary angiography reassuring. No severe residual disease. Review of Systems Review of Systems: All systems reviewed & are unremarkable except as noted in HPI & below Physical Exam Physical Exam: General: Comfortable, no acute distress Eyes: Sclerae anicteric, extraocular movements intact HENT: Oropharynx clear mucous membranes moist Neck: No JVD. Lungs: clear Cardiac: Regular rate and rhythm, no murmurs Abdomen: Soft, nontender Neuro: Nonfocal Psych: Alert orient x3, normal affect and mood Extremities/Vascular: -- 2+ radial bilaterally -- RT radial pulse intact, no hematoma. intact distal sensation. -- No edema Results & Data ([facility]) Vital Signs (Past 12 Hours) Vital Signs Temp Pulse Pulse Resp BP Pulse Ox 07/06/19 15:18 98.2 F 57 L 16 110/69 98 07/06/19 15:10 57 L 16 110/69 97 07/06/19 14:55 98.1 F 55 L 16 115/67 97 07/06/19 14:28 57 L 20 102/56 L 96 07/06/19 14:25 58 L 20 104/59 L 97 07/06/19 14:20 59 L 20 108/65 98 07/06/19 14:15 58 L 20 105/62 96 07/06/19 11:50 98.8 F 59 L 18 144/69 H 97 07/06/19 08:20 61 07/06/19 08:00 97.7 F 61 50 L 16 139/68 96 PG Care Time/CCT Total # of Minutes Spent Total Time Spent with Patient: Total time spent is greater than 50% in coordination of care (as documented) at patient's floor/unit and/or counseling patient: Coding Level of Care Code 57557 Subseq Hosp Care Lvl [address] elevation (STEMI) myocardial infarction I21.11 Involved coronary artery: right coronary artery (1) ST elevation (STEMI) myocardial infarction Involved coronary artery: right coronary artery Qualified Code(s): I21.11 - ST elevation (STEMI) myocardial infarction involving right coronary artery
[2019-07-06 16:09] LABS: Partial Thromboplastin Time 27.9 Seconds (21.0-31.0)
[2019-07-06] MEDS ORDERED: PREGABALIN 100 MG CAP PO ONE (20:30)
[2019-07-06] MEDS: ROSUVASTATIN CALCIUM 20 MG TAB PO SCH (20:57)
[2019-07-06] MEDS: LEVOTHYROXINE SODIUM 50 MCG TABLET PO SCH (20:58)
--- NOTE | 2019-07-06 22:32 | Electrocardiogram Report ---
Test Reason : Blood Pressure : / mmHG Vent. Rate : 064 BPM Atrial Rate : 064 BPM P-R Int : 172 ms QRS Dur : 096 ms QT Int : 434 ms P-R-T Axes : 032 -32 -56 degrees QTc Int : 447 ms Normal sinus rhythm Left axis deviation Inferior infarct (cited on or before 03-JUL-2019) T wave abnormality, consider inferolateral ischemia Abnormal ECG When compared with ECG of 04-JUL-2019 08:32, T wave inversion more evident in Anterolateral leads Confirmed by Don Hicks ([id number]) on 07/06/2019 10:32:21 PM Referred By: REFERRED SELF Confirmed By:Don Hicks
[2019-07-07] MEDS ORDERED: RIVAROXABAN 20 MG TAB PO SCH (09:00)
[2019-07-07] MEDS: METOPROLOL TARTRATE 25 MG TAB PO SCH (09:33)
[2019-07-07] MEDS: lisinopriL 5 MG TAB PO SCH (09:34)
[2019-07-07] MEDS: GABAPENTIN 300 MG CAP PO SCH (09:34)
[2019-07-07] MEDS: ASPIRIN 81 MG ECTAB PO SCH (09:34)
[2019-07-07] MEDS: PANTOprazole 40 MG TAB PO SCH (09:34)
[2019-07-07] MEDS: predniSONE 2.5 MG TAB PO SCH (09:35)
[2019-07-07] MEDS: CLOPIDOGREL BISULFATE 75 MG TAB PO SCH (09:35)
[2019-07-07] MEDS: CALCIUM 600MG + VIT D 400 IU TAB PO SCH (09:35)
--- NOTE | 2019-07-07 11:08 | Hospitalist Progress Note ---
Date of Service July 07, 2019 Assessment & Plan (1) ST elevation (STEMI) myocardial infarction: Presented as a [employer] heart alert on 07/02 with Chest pain and inferior ST elevations. Underwent emergent catheterization which showed distal RCA 100% very late stent thrombosis. Flow re-established with angioplasty but stent could not be delivered to distal vessel in the setting of diffuse upstream ectatic disease. Also had 70% distal LAD disease. Troponin peaked at 105.2 on admission, then 75.9 on 07/05. Echo showed mild LV dysfunction with inferior akinesis but he has no clinical signs of acute CHF Appreciate cardiology management - Continue aspirin, clopidogrel, restarted on Xarelto. Aspirin to be d/c in 1 week. - LDL 81. Consider increasing rosuvastatin to 40mg daily - Continue Protonix while on triple therapy - Started on lisinopril 5 mg daily and nebivolol switched to metoprolol tartrate 25 mg p.o. twice daily (consider change to succinate as per cardiology management) - Ok for discharge from medical stand point. (2) CAD (coronary artery disease): As above With a history of RI and stent placement in 2009. Had repeat cardiac catheterization approximately 2 to 3 years ago that he reports was stable from previous He follows with a Dr. Johnson at [facility] - Continue medications as noted above - Discontinued ISMN as per cardiology management. (3) Hypertension: Blood pressures well controlled -Continue metoprolol, lisinopril -Home Bystolic has been discontinued -Home isosorbide has been discontinued (4) NSVT (nonsustained ventricular tachycardia): Mg > 2 K 3.7 Mildly decreased EF on echocardiogram Telemetry SR 50-60s -Continue metoprolol (5) Ischemic cardiomyopathy: Echo showed mild LV dysfunction with inferior akinesis EF 40-45%. BB + ACEi as per cardiology management. No evidence of acute CHF (6) Paroxysmal atrial fibrillation: With a history of such and is status post A. fib ablation in the past. Currently in sinus rhythm. - Xarelto restarted - No episodes while admitted (7) Chronic steroid use: For rheumatoid arthritis -Continue home prednisone 7.5 mg daily -No stress dose steroids needed at this time (8) Rheumatoid arthritis: Follows with vice president talent management Dr. Eve Banuelos in [place] -Continue home prednisone -Holding home salsalate - should probably discontinue this indefinitely given prednisone, aspirin, Xarelto and clopidogrel use but will leave this up to his PCP and vice president talent management. He should at least be off this for 2 weeks. (9) Hypothyroidism: -Continue home levothyroxine -TSH 3.22. (10) Peripheral neuropathy: Continue gabapentin 300 mg p.o. twice daily Unknown etiology and patient does not know-no history of diabetes (11) Thrombocytosis: Platelets in the 500s on admission and now down in the 400s, likely acute phase reactant Did have recent ICU stay for 1 week for influenza and pneumonia and now here with STEMI -Follow CBC (12) Pneumonia: As above, had a recent one-week hospital stay reportedly in the ICU at [facility] for influenza and pneumonia Completed courses of Tamiflu and levofloxacin after discharge Chest x-ray here without any evidence of pneumonia Lung exam is normal and he has no symptoms, afebrile No current symptoms of this. (13) GERD (gastroesophageal reflux disease): -Continue home Pepcid PRN -Continues on Protonix while on triple therapy (14) DVT prophylaxis: Continues on Xarelto Admission and Anticipated Discharge Date Admission Date: July 03, 2019 Can be discharged from medical stand point. Recommend continuing to hold his salsalate for at least 2 weeks following STEMI -> discontinue indefinitely if RA can be controlled without this given increased risk of RI and concurrent use of Xarelto. Recommend pantoprazole 40mg PO daily for the next week while on triple therapy and prednisone. Anticipated date of discharge: 07/07/19 Subjective Patient reports no chest pain since cardiac cath. He has been up and moving around without chest pain or shortness of breath on exertion. No orthopnea, PND, palpitations. Repeat cardiac cath with moderate residual RCA disease with widely patent RCA stents - no need for additional intervention. Review of Systems Review of Systems: All systems reviewed & are unremarkable except as noted in HPI & below Physical Exam Constitutional: well developed and well nourished; no acute distress Eyes: + anicteric sclerae; normal pupil size ENMT: Mallampati Class: III Respiratory: normal respiratory effort; no respiratory distress Auscultation: lungs clear to auscultation bilaterally; no crackles and no wheezes Cardiovascular: Rate/Rhythm: regular rate and regular rhythm Heart Sounds: no murmur Chest (Breasts): Chest: normal inspection of chest Gastrointestinal (Abdomen): Inspection/Auscultation: abdomen normal to inspection and normal bowel sounds Percussion/Palpation: abdomen soft; abdomen nontender, no guarding and abdomen not rigid Musculoskeletal: no cyanosis or clubbing, extremities motor strength 5/5 Extremities: no cyanosis Skin: no rashes, warm and dry Neurologic: moves all extremities and awake; not confused Psychiatric: A+Ox3, euthymic affect Results & Data ([facility]) Vital Signs (Past 12 Hours) Vital Signs Temp Pulse Pulse Resp BP Pulse Ox 07/07/19 09:40 62 07/07/19 08:00 57 L 07/07/19 07:49 36.8 C 65 18 121/78 95 07/07/19 04:02 36.9 C 58 L 20 117/71 97 07/06/19 23:36 36.5 C 54 L 21 127/77 95 PG Care Time/CCT Total # of Minutes Spent Total Time Spent with Patient: Total time spent is greater than 50% in coordination of care (as documented) at patient's floor/unit and/or counseling patient: Coding Level of Care Code 99867 Subseq Hosp Care Lvl [address] elevation (STEMI) myocardial infarction I21.11 Involved coronary artery: right coronary artery CAD (coronary artery disease) I25.10 Associated angina: without angina Coronary Disease-Associated Artery/Lesion type: ely [place] artery [place] vs. transplanted heart: ely shoshone heart Hypertension I10 Hypertension type: essential hypertension NSVT (nonsustained ventricular tachycardia) I47.2 Ischemic cardiomyopathy I25.5 Paroxysmal atrial fibrillation I48.0 Chronic steroid use Rheumatoid arthritis M06.9 Rheumatoid arthritis location: multiple sites Rheumatoid factor presence: unspecified presence Hypothyroidism E03.9 Peripheral neuropathy G62.9 Peripheral neuropathy type: polyneuropathy, unspecified Thrombocytosis D47.3 Pneumonia J18.9 Laterality: unspecified laterality Lung location: unspecified part of lung Pneumonia type: due to unspecified organism GERD (gastroesophageal reflux disease) K21.9 DVT prophylaxis Z29.9 (1) Rheumatoid arthritis Rheumatoid arthritis location: multiple sites Rheumatoid factor presence: unspecified presence Qualified Code(s): M06.9 - Rheumatoid arthritis, unspecified (2) CAD (coronary artery disease) Associated angina: without angina Coronary Disease-Associated Artery/Lesion type: ely [place] artery [place] vs. transplanted heart: ely shoshone heart Qualified Code(s): I25.10 - Atherosclerotic heart disease of ely shoshone coronary artery without angina pectoris (3) ST elevation (STEMI) myocardial infarction Involved coronary artery: right coronary artery Qualified Code(s): I21.11 - ST elevation (STEMI) myocardial infarction involving right coronary artery (4) Peripheral neuropathy Peripheral neuropathy type: polyneuropathy, unspecified Qualified Code(s): G62.9 - Polyneuropathy, unspecified (5) Hypertension Hypertension type: essential hypertension Qualified Code(s): I10 - Essential (primary) hypertension (6) Pneumonia Laterality: unspecified laterality Lung location: unspecified part of lung Pneumonia type: due to unspecified organism Qualified Code(s): J18.9 - Pneumonia, unspecified organism
--- NOTE | 2019-07-09 13:21 | Discharge Summary ---
Date of Service July 09, 2019 Admission HPI Per Admitting Provider Mr. Dao is a pleasant 68 year old man with a history of CAD post acute WI and RCA stenting ~10 yrs ago who was after inferior WI treated with primary PCI. Other medical issues include rheumatoid arthritis on chronic steroids, hypertension, GERD, neuropathy. Prior history of PAF and post AF ablation. Has been on long-term xarelto. Clopidogrel stopped yrs ago. 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 Was admitted to [facility] ICU last week in the setting of influenza A and PNA. Discharged on levofloxacin. Per patient report course complicated by recurrent AF. Chest pain began at rest ~10 AM, radiating down bilateral arms and reminiscent of prior WI. Initially presented to [facility] before life-flighted to [facility]. ECG with 4+ inferior ST elevations. Underwent emergent catheterization which showed distal RCA 100% very late stent thrombosis. Flow re-established with angioplasty but stent could not be delivered to distal vessel in the setting of diffuse upstream ectatic disease. Also had 70% distal LAD disease. Patient kept on heparin overnight. Troponin peaked at 78. No further chest pain. Rare ventricular ectopy on telemetry. Echo showed mild LV dysfunction with inferior akinesis. Specialty Data Cardiology Cardiac catheterization 07/06/2019: Left Main: large. Mild <30% LAD: large, transapical. Proximal with mild disease, mid up to 40%, distal vessel with mild to moderate diffuse disease and myocardial bridging. LCx: large, nondominant Prox and mid mild disease. RCA: large caliber and dominant. Diffuse disease and ectasia. Proximal 20-30%. At RVM long eccentric calcified 30-40%. RVM prox 99%. Then ectasia/aneurysm before mid stent. Widely patent latemid RCA stent, distal RCA in between stents widely patent without significant residual stenosis, distal RCA stent widely patent. PDA ostium with minimal residual stenosis and DOMENICA-3 flow. Discharge Data Consultations 07/03/19 16:56 Consult Cardiology Routine Consult Form Maker Stat 07/03/19 21:25 Consult Case Management - Discharge Planning Routine 07/04/19 13:34 Consult Hospitalist Routine Procedures Performed Operation Date: 07/03/19 11:45 Actual Procedures p Aspiration/PCI w/SCOT for Stemi - Jm Soto MD s Cineradiography w/Routine Exam - Jm Soto MD p Cath, Coronaries ONLY (no LV) - Jm Soto MD Operation Date: 07/06/19 09:30 Actual Procedures p Cath, Coronaries ONLY (no LV) - Andrew Tse MD s Cineradiography w/Routine Exam - Andrew Tse MD Hospital Course (1) ST elevation (STEMI) myocardial infarction: Patient was admitted on 07/03/2019 in the setting of inferior STEMI. Underwent urgent cardiac catheterization which revealed an occluded distal RCA. This was treated with balloon angioplasty due to diffuse, ectatic upstream disease no stent could be placed at that time. Was admitted to the intensive care unit on heparin infusion which was continued for greater than 48 hours. During remainder of hospitalization remained chest pain-free. Troponin peaked at 78. Echocardiogram showed EF 40 to 45% with akinetic inferior/posterior wall. On hospital day 4 underwent repeat cardiac catheterization which showed widely patent RCA stents, well-healed distal RCA and DOMENICA-3 flow. As patient was chest pain-free no indication for additional intervention. Patient discharged home on hospital day 5 on prior Xarelto and clopidogrel. To discontinue aspirin in 1 week and continue dual therapy with clopidogrel, Xarelto for at least 1 year. Likely indefinitely in the setting of complex coronary disease. While on triple therapy started on Protonix and NSAIDs disco ntinued. Follow-up with cardiology in 2 weeks. Discharge Instructions Home Medications Xarelto 20 mg PO DAILY 07/03/19 [History Confirmed 07/03/19] aspirin 81 mg PO DAILY 07/03/19 [History Confirmed 07/03/19] calcium carbonate-vitamin D3 [Calcium 500 + D] 1 tab PO DAILY 07/03/19 [History Confirmed 07/03/19] cholecalciferol (vitamin D3) [Vitamin D3] 0 unit PO DAILY 07/03/19 [History Confirmed 07/03/19] famotidine 20 mg PO DAILY PRN 07/03/19 [History Confirmed 07/03/19] gabapentin 300 mg PO BID 07/03/19 [History Confirmed 07/05/19] [id number] serr [Osteo Bi-Flex (5-Loxin)] 1 tab PO DAILY 07/03/19 [History Confirmed 07/03/19] ketoconazole 1 applic TOPICAL DAILY PRN 07/03/19 [History Confirmed 07/03/19] levothyroxine 50 mcg PO DAILY 07/03/19 [History Confirmed 07/03/19] multivitamin 1 cap PO DAILY 07/03/19 [History Confirmed 07/03/19] nitroglycerin [Nitrostat] 0.4 mg SUBLINGUAL UD 07/03/19 [History Confirmed 07/03/19] prednisone 7.5 mg PO QDB 07/03/19 [History Confirmed 07/03/19] rosuvastatin 20 mg PO HS 07/03/19 [History Confirmed 07/03/19] clopidogrel 75 mg PO QAM #30 tab 07/07/19 [Rx] lisinopril [Zestril] 5 mg PO QAM #30 tab 07/07/19 [Rx] metoprolol tartrate 25 mg PO BID #60 tab 07/07/19 [Rx] pantoprazole 40 mg PO QAM 30 Days #30 tab 07/07/19 [Rx] pantoprazole [Protonix] 40 mg PO DAILY 7 Days #7 tab 07/07/19 [Rx] Coding Level of Care Code D/C Day Management <[address] elevation (STEMI) myocardial infarction I21.11 Involved coronary artery: right coronary artery
== END 2019-07-07 12:55 | disposition home or self-care (01) | DRG 250 ==
LOC: ED 11:36 → CC 12:06 → 1E 12:14 → 2S 07-05 16:44
PROC: CLB.CCO (2019-07-03 11:45)